=== PATIENT | female | born 1965 | race African-American/Black ===

== ENCOUNTER → 2019-05-31 07:22 | Outpatient (CLI) | payer OTHER, SELFPAY ==
--- NOTE | 2019-05-31 06:57 | BI_ITS ---
MAMMOGRAPHY - BILATERAL SCREENING REASON FOR EXAM: Female, 54 years old. Routine annual screening examination. PERTINENT HISTORY: Non-contributory. Prior ultrasound guided biopsy of a left breast nodule. TECHNIQUE: Digital bilateral breast kerline (3D mammographic acquisition) in the CC and MLO projections. 2-D mediolateral oblique (MLO) and craniocaudad (CC) views of both breasts were obtained. CAD: Full Field Digital Mammography with Computer Added Detection was performed. COMPARISON: Comparison is made with prior study dated November 27, 2017 and October 22, 2016. FINDINGS: Breast Composition: There are scattered areas of fibroglandular density. There are no dominant masses or suspicious calcifications. A tissue clip marker is seen within the 7.3 mm x 5.4 mm nodule in the central lateral aspect of the left breast. Stable appearance of the bilateral axillary lymph nodes. No other significant abnormalities are identified. There has been no significant change since the prior study. BI/SCREEN MAMM (CAD) W/KERLINE BILAT IMPRESSION: Stable bilateral screening mammogram. Yearly follow-up mammogram recommended. (A) ASSESSMENT CATEGORY: BIRADS Category 2: Benign. A letter regarding these results will be sent to the patient by the facility within 30 days. Approximately 10% of breast cancers are not detected by mammography. A normal mammogram should not delay biopsy of a clinically suspicious abnormality. [id number] Electronically Signed: Chavez Garcia, at 9:17 EDT , Service support ,
== END ==
PROVIDERS: Family Provider Family Medicine; PCP Family Medicine; Referring Provider Nurse Practitioner Primary Care; Visit Provider Nurse Practitioner Primary Care
DX: Z12.31 Encounter for screening mammogram for malignant neoplasm of breast (principal)
CPT/HCPCS: 77063; 77067

== ENCOUNTER → 2020-06-04 07:14 | Outpatient (CLI) | payer OTHER, SELFPAY ==
--- NOTE | 2020-06-04 07:17 | BI_ITS ---
MAMMOGRAPHY - BILATERAL SCREENING REASON FOR EXAM: Female, 55 years old. Routine annual screening examination. PERTINENT HISTORY: Non-contributory. Prior left ultrasound-guided breast biopsy. TECHNIQUE: Digital bilateral breast kerline (3D mammographic acquisition) in the CC and MLO projections. 2-D mediolateral oblique (MLO) and craniocaudad (CC) views of both breasts were obtained. CAD: Full Field Digital Mammography with Computer Added Detection was performed. COMPARISON: Comparison is made with prior examination dated May 31, 2019 and November 27, 2017. FINDINGS: Breast Composition: The breasts are almost entirely fatty. There are no dominant masses or suspicious calcifications. A tissue clip marker is once again seen within the 7.3 mm x 5.4 mm nodule in the central lateral aspect of the left breast. Stable benign-appearing bilateral axillary lymph nodes. No other significant abnormalities are identified. There has been no significant change since the prior study. BI/SCREEN MAMM (CAD) W/KERLINE BILAT IMPRESSION: Stable bilateral screening mammogram. Yearly follow-up mammogram recommended. (A) ASSESSMENT CATEGORY: BIRADS Category 2: Benign. A letter regarding these results will be sent to the patient by the facility within 30 days. Approximately 10% of breast cancers are not detected by mammography. A normal mammogram should not delay biopsy of a clinically suspicious abnormality. [id number] Electronically Signed: Chavez Garcia, at 8:43 EDT , Service support ,
== END ==
PROVIDERS: PCP Family Medicine; Referring Provider Nurse Practitioner Family; Visit Provider Nurse Practitioner Family
DX: Z12.31 Encounter for screening mammogram for malignant neoplasm of breast (principal)
CPT/HCPCS: 77063; 77067

== ENCOUNTER → 2021-06-06 07:35 | Outpatient (CLI) | payer OTHER, SELFPAY ==
--- NOTE | 2021-06-06 07:37 | BI_ITS ---
MAMMOGRAPHY - BILATERAL SCREENING REASON FOR EXAM: Female, 56 years old. Routine annual screening examination. PERTINENT HISTORY: Non-contributory. Remote left ultrasound guided breast biopsy. TECHNIQUE: Digital bilateral breast kerline (3D mammographic acquisition) in the CC and MLO projections. 2-D mediolateral oblique (MLO) and craniocaudad (CC) views of both breasts were obtained. CAD: Full Field Digital Mammography with Computer Added Detection was performed. COMPARISON: Comparison is made with prior examination dated 06/04/2020 and 05/31/2019. FINDINGS: Breast Composition: The breasts are almost entirely fatty. There are no dominant masses or suspicious calcifications. A tissue clip marker is once again seen within a 7 mm x 5 mm nodule in the central lateral aspect of the left breast. Stable small benign appearing bilateral axillary lymph nodes. No other significant abnormalities are identified. There has been no significant change since the prior study. BI/SCRN MAMM (CAD)W/KERLINE BILAT IMPRESSION: Stable bilateral screening mammogram. Yearly follow-up mammogram recommended. (A) ASSESSMENT CATEGORY: BIRADS Category 2: Benign. A letter regarding these results will be sent to the patient by the facility within 30 days. Approximately 10% of breast cancers are not detected by mammography. A normal mammogram should not delay biopsy of a clinically suspicious abnormality. [id number] Electronically Signed: Chavez Garcia MD at 8:28 EDT , Service support ,
== END ==
PROVIDERS: PCP Family Medicine; Referring Provider Nurse Practitioner Primary Care; Visit Provider Nurse Practitioner Primary Care
DX: Z12.31 Encounter for screening mammogram for malignant neoplasm of breast (principal)
CPT/HCPCS: 77063; 77067

== ENCOUNTER 2021-12-30 15:29 | Outpatient (RCR) | payer OTHER, SELFPAY | END 2021-12-30 23:59 | LOC: NS 15:29 | PROVIDERS: PCP Family Medicine; Visit Provider Specialist | DX: Z71.3 Dietary counseling and surveillance (principal); Z68.41 Body mass index [BMI] 40.0-44.9, adult; E66.8 Other obesity | CPT/HCPCS: 97802 ==

== ENCOUNTER → 2022-08-05 | Outpatient (CLI) | payer OTHER, SELFPAY ==
--- NOTE | 2022-08-05 07:07 | BI_ITS ---
MAMMOGRAPHY - BILATERAL SCREENING REASON FOR EXAM: Female, 57 years old. Routine annual screening examination. PERTINENT HISTORY: Non-contributory. Prior left ultrasound-guided breast biopsy. TECHNIQUE: Digital bilateral breast kerline (3D mammographic acquisition) in the CC and MLO projections. 2-D mediolateral oblique (MLO) and craniocaudad (CC) views of both breasts were obtained. CAD: Full Field Digital Mammography with Computer Added Detection was performed. COMPARISON: Comparison is made with prior study 06/06/2021 and 06/04/2020. FINDINGS: Breast Composition: The breasts are almost entirely fatty. There are no dominant masses or suspicious calcifications. Stable small benign appearing bilateral axillary lymph nodes. A tissue clip marker is seen in the anterior superior aspect of the left retroareolar region. No other significant abnormalities are identified. There has been no significant change since the prior study. BI/SCRN MAMM (CAD)W/KERLINE BILAT IMPRESSION: Stable bilateral screening mammogram. Yearly follow-up mammogram recommended. (A) ASSESSMENT CATEGORY: BIRADS Category 2: Benign. A letter regarding these results will be sent to the patient by the facility within 30 days. Approximately 10% of breast cancers are not detected by mammography. A normal mammogram should not delay biopsy of a clinically suspicious abnormality. [id number] Electronically Signed: Chavez Garcia MD at 8:27 EDT ,
== END | disposition home or self-care (01) ==
LOC: OPBI 07:04
PROVIDERS: PCP Nurse Practitioner Primary Care; Visit Provider Nurse Practitioner Primary Care
DX: Z12.31 Encounter for screening mammogram for malignant neoplasm of breast (principal)
CPT/HCPCS: 77063; 77067

== ENCOUNTER → 2023-02-11 | Outpatient (CLI) | payer OTHER, SELFPAY ==
--- NOTE | 2023-02-11 09:15 | MRI_ITS ---
EXAM: MR LEFT LOWER EXTREMITY WITHOUT INTRAVENOUS CONTRAST, ANKLE CLINICAL INDICATION: LEFT ankle pain, injury TECHNIQUE: Multiplanar and multisequence MR images of the left ankle without intravenous contrast. This report was created using [employer] report [employer] technology. COMPARISON: None. FINDINGS: LIGAMENTS: ANTERIOR TALOFIBULAR: Unremarkable. Intact. POSTERIOR TALOFIBULAR: Unremarkable. Intact. ANTERIOR TIBIOFIBULAR: Unremarkable. Intact. POSTERIOR TIBIOFIBULAR: Unremarkable. Intact. CALCANEOFIBULAR: Unremarkable. Intact. DELTOID: Unremarkable. Intact. SPRING: Unremarkable. Intact. LISFRANC: Unremarkable. Intact. TENDONS: ACHILLES: Unremarkable. Intact. FLEXOR: Unremarkable. Intact. EXTENSOR: Unremarkable. Intact. PERONEAL: Unremarkable. Intact. TIBIALIS ANTERIOR: Unremarkable. Intact. TIBIALIS POSTERIOR: Unremarkable. Intact. MUSCLES: Unremarkable. Normal bulk and signal. FLUID: Small posterior subtalar joint effusion and small tibiotalar joint effusion, both with synovitis. SINUS TARSI: Unremarkable. Normal fat in the sinus tarsi. TARSAL TUNNEL: Unremarkable. PLANTAR FASCIA: Unremarkable. Intact. CARTILAGE: Unremarkable. No osteochondral lesion. Articular cartilage intact. BONES/JOINTS: Chronic appearing osteochondral lesion or defect measuring 6 mm at the medial medial talar dome. No fracture or marrow edema. OTHER SOFT TISSUES: Unremarkable. MRI/Lower Ext Joint Only (Routine) IMPRESSION: 1. Chronic appearing osteochondral lesion or defect measuring 6 mm at the medial medial talar dome. 2. Small posterior subtalar joint effusion and small tibiotalar joint effusion, both with synovitis. 3. No other significant internal derangement. Electronically Signed: Jerry Terrazas MD at 23:44 EDT ,
== END | disposition home or self-care (01) ==
PROVIDERS: PCP Nurse Practitioner Primary Care; Referring Provider Student in an Organized Health Care Education/Training Program; Visit Provider Student in an Organized Health Care Education/Training Program
DX: S93.432A Sprain of tibiofibular ligament of left ankle, initial encounter (principal); M79.672 Pain in left foot; M25.372 Other instability, left ankle
CPT/HCPCS: 73721

== ENCOUNTER → 2023-08-10 | Outpatient (CLI) | payer OTHER, SELFPAY ==
--- NOTE | 2023-08-10 07:12 | BI_ITS ---
MAMMOGRAPHY - BILATERAL SCREENING REASON FOR EXAM: Female, 58 years old. Routine annual screening examination. PERTINENT HISTORY: Non-contributory. History of prior left ultrasound-guided breast biopsy. TECHNIQUE: Digital bilateral breast kerline (3D mammographic acquisition) in the CC and MLO projections. 2-D mediolateral oblique (MLO) and craniocaudad (CC) views of both breasts were obtained. CAD: Full Field Digital Mammography with Computer Added Detection was performed. COMPARISON: Comparison is made with prior study August 05, 2022 and June 06, 2022. FINDINGS: Breast Composition: The breasts are almost entirely fatty. There are no dominant masses or suspicious calcifications. Stable small benign-appearing bilateral axillary lymph nodes. Stable 3 mm nodular density in the axillary region of the right breast suggestive of a small lymph node. A tissue clip marker is seen in the lateral subareolar region of the left breast. No other significant abnormalities are identified. There has been no significant change since the prior study. BI/SCRN MAMM (CAD)W/KERLINE BILAT IMPRESSION: Stable bilateral screening mammogram. Yearly follow-up mammogram recommended. (A) ASSESSMENT CATEGORY: BIRADS Category 2: Benign. A letter regarding these results will be sent to the patient by the facility within 30 days. Approximately 10% of breast cancers are not detected by mammography. A normal mammogram should not delay biopsy of a clinically suspicious abnormality. [id number] Electronically Signed: Chavez Garcia MD at 8:49 EDT ,
== END | disposition home or self-care (01) ==
LOC: OPBI 07:10
PROVIDERS: PCP Nurse Practitioner Primary Care; Referring Provider Nurse Practitioner Primary Care; Visit Provider Nurse Practitioner Primary Care
DX: Z12.31 Encounter for screening mammogram for malignant neoplasm of breast (principal)
CPT/HCPCS: 77063; 77067

== ENCOUNTER → 2024-02-22 | Outpatient (CLI) | payer OTHER, SELFPAY ==
[2024-02-22 12:39] LABS: Erythrocyte Sedimentation Rate 10 mm/hr (0-30)
[2024-02-22 12:44] LABS: Absolute Neutrophil Count 2.7 X10^3/uL (2.0-7.7); Basophil# 0.03 X10^3/uL; Basophil% 0.6 % (0-1); Eosinophil# 0.11 X10^3/uL; Hematocrit 41.8 % (37-47); Hemoglobin 13.4 g/dL (12.0-15.0); Mean Corp Hgb Conc 32.1 g/dL (32-36); Mean Corpuscular Hgb 31.7 pg (27.0-32.0); Mean Corpuscular Volume 98.8 fL (81-99); Mean Platelet Vol. 11.9 fl (6.2-12.0); Monocyte# 0.46 X10^3/uL; Monocyte% 8.5 % (0-10); NRBC Flagged by Analyzer 0 % (0-5); Neutrophil # 2.68 X10^3/uL (2.7-7.7); Neutrophil % 49.7 % (47-70); Platelet Count 205 K/mm3 (150-450); RBC Distribution Width CV 12.7 % (11.6-14.6); RBC Distribution Width SD 45.1 fl (35.1-43.9); Red Blood Count 4.23 M/mm3 (4.2-5.4); White Blood Count 5.4 K/mm3 (4.4-11.0)
[2024-02-22 13:32] LABS: ALB/GLOB Ratio 0.9 RATIO (0.9-2.4); AST(SGOT) 17 U/L (15-37); Alanine Aminotransfer ALT/SGPT 23 U/L (13-56); Albumin, Serum 3.7 g/dL (3.2-5.0); Alkaline Phosphatase 88 U/L (45-117); Anion Gap 6 (5-15); BUN 15 mg/dL (7-18); BUN/Creat Ratio 20.3 RATIO (10-20); CRP < 2.90 mg/L (0.0-3.0); Chloride 108 mmol/L (98-107); Creatinine, Serum 0.74 mg/dL (0.55-1.02); EST Glomerular Filtration Rate 85 mL/min (>60); Est Glom Filt Rate - Afr Amer 103 mL/min (>60); Glucose 101 mg/dL (74-106); Protein, Total 7.7 g/dL (6.4-8.2); Rheumatoid Factor < 10.0 IU/mL (<15); Sodium Level 141 mmol/L (136-145)
[2024-02-22 13:54] LABS: Hepatitis B Surface Antibody Non-Reactive; Hepatitis B Surface Antigen Non-Reactive (Nonreactive); Hepatitis C Antibody Non-Reactive (Nonreactive)
[2024-02-23 11:09] LABS: ANTINUCLEAR ANTIBODIES DIRECT Negative (Negative)
[2024-02-23 14:10] LABS: CCP IgG Antibodies 1 units (0-19)
== END | disposition home or self-care (01) ==
PROVIDERS: PCP Nurse Practitioner Primary Care; Referring Provider Internal Medicine Rheumatology; Visit Provider Internal Medicine Rheumatology
DX: M06.4 Inflammatory polyarthropathy (principal)
CPT/HCPCS: 36415; 80053; 85025; 85652; 86038; 86140; 86200; 86431; 86706; 86803; 87340

== ENCOUNTER → 2024-05-06 | Outpatient (CLI) | payer OTHER, SELFPAY ==
[2024-05-06 15:19] LABS: Absolute Lymphocyte Count 2.36 X10^3/uL (0.83-4.51); Absolute Neutrophil Count 3.6 X10^3/uL (2.0-7.7); Basophil# 0.02 X10^3/uL; Basophil% 0.3 % (0-1); Eosinophils% 1.5 % (0-5); Hematocrit 38.3 % (37-47); Hemoglobin 12.6 g/dL (12.0-15.0); Lymphocyte # 2.36 X10^3/ul (0.83-4.51); Lymphocyte % 34.5 % (19-41); Mean Corp Hgb Conc 32.9 g/dL (32-36); Mean Corpuscular Hgb 31.9 pg (27.0-32.0); Mean Platelet Vol. 11.8 fl (6.2-12.0); Monocyte# 0.76 X10^3/uL; Monocyte% 11.1 % (0-10); NRBC Flagged by Analyzer 0 % (0-5); Neutrophil # 3.58 X10^3/uL (2.7-7.7); Neutrophil % 52.3 % (47-70); Platelet Count 207 K/mm3 (150-450); RBC Distribution Width CV 12.9 % (11.6-14.6); RBC Distribution Width SD 46.3 fl (35.1-43.9); Red Blood Count 3.95 M/mm3 (4.2-5.4); White Blood Count 6.8 K/mm3 (4.4-11.0)
[2024-05-06 15:46] LABS: ALB/GLOB Ratio 0.9 RATIO (0.9-2.4); AST(SGOT) 16 U/L (15-37); Alanine Aminotransfer ALT/SGPT 26 U/L (13-56); Albumin, Serum 3.5 g/dL (3.2-5.0); Alkaline Phosphatase 76 U/L (45-117); Anion Gap 6 (5-15); BUN 18 mg/dL (7-18); BUN/Creat Ratio 22.6 RATIO (10-20); Calcium,Total 8.7 mg/dL (8.5-10.1); Chloride 108 mmol/L (98-107); EST Glomerular Filtration Rate 78 mL/min (>60); Est Glom Filt Rate - Afr Amer 94 mL/min (>60); Globulin 3.7 g/dL (2.2-4.2); Glucose 102 mg/dL (74-106); Potassium 3.9 mmol/L (3.5-5.1); Protein, Total 7.2 g/dL (6.4-8.2); Sodium Level 139 mmol/L (136-145)
== END | disposition home or self-care (01) ==
LOC: MTLAB 13:56
PROVIDERS: PCP Nurse Practitioner Primary Care; Referring Provider Internal Medicine Rheumatology; Visit Provider Internal Medicine Rheumatology
DX: M06.4 Inflammatory polyarthropathy (principal); Z79.899 Other long term (current) drug therapy
CPT/HCPCS: 36415; 80053; 85025

== ENCOUNTER → 2024-08-12 | Outpatient (CLI) | payer OTHER, SELFPAY ==
--- NOTE | 2024-08-12 07:11 | BI_ITS ---
MAMMOGRAPHY - BILATERAL SCREENING REASON FOR EXAM: Female, 59 years old. Routine annual screening examination. PERTINENT HISTORY: Non-contributory. Prior left ultrasound-guided breast biopsy. TECHNIQUE: Digital bilateral breast kerline (3D mammographic acquisition) in the CC and MLO projections. 2-D mediolateral oblique (MLO) and craniocaudad (CC) views of both breasts were obtained. CAD: Full Field Digital Mammography with Computer Added Detection was performed. COMPARISON: Comparison is made with prior study August 10, 2023 and August 05, 2022. FINDINGS: Breast Composition: The breasts are almost entirely fatty. There are no dominant masses or suspicious calcifications. A tissue clip marker is seen in the retroareolar area of the left breast. Stable 3 mm nodule in the axial region of the right breast suggestive of a small lymph node. No other significant abnormalities are identified. There has been no significant change since the prior study. BI/SCRN MAMM (CAD)W/KERLINE BILAT IMPRESSION: Stable bilateral screening mammogram. Yearly follow-up mammogram recommended. (A) ASSESSMENT CATEGORY: BIRADS Category 2: Benign. A letter regarding these results will be sent to the patient by the facility within 30 days. Approximately 10% of breast cancers are not detected by mammography. A normal mammogram should not delay biopsy of a clinically suspicious abnormality. [id number] Electronically Signed: Chavez Garcia MD at 8:40 EDT ,
== END | disposition home or self-care (01) ==
LOC: OPBI 07:09
PROVIDERS: PCP Nurse Practitioner Primary Care; Referring Provider Nurse Practitioner Primary Care; Visit Provider Nurse Practitioner Primary Care
DX: Z12.31 Encounter for screening mammogram for malignant neoplasm of breast (principal)
CPT/HCPCS: 77063; 77067

== ENCOUNTER → 2025-09-14 | Outpatient (CLI) | payer OTHER, SELFPAY ==
--- NOTE | 2025-09-14 07:05 | BI_ITS ---
EXAM: SCRN MAMM (CAD)W/KERLINE BILAT DATE: 09/14/2025 CLINICAL HISTORY: F, Age 60 y/o , SCREENING No family history. Prior left ultrasound-guided breast biopsy. TECHNIQUE: Procedure Code: [id number] Modality: MG Procedure: SCRN MAMM (CAD)W/KERLINE BILAT COMPARISON: Prior exam(s) dated August 12, 2024.. FINDINGS: TISSUE DENSITY: The breasts are almost entirely fatty. Bilateral Breast Mammographic Findings: No significant masses, calcifications or other abnormalities are identified. A tissue clip marker is once again seen in the retroareolar region of the left breast. Stable 3 mm well-defined nodule in the deep upper lateral aspect of the right breast suggestive of a small lymph node. No suspicious masses, areas of developing architectural distortion, or suspicious calcifications. There has been no significant interval change. BI/SCRN MAMM (CAD)W/KERLINE BILAT IMPRESSION: Stable bilateral screening mammogram. OVERALL FINAL ASSESSMENT BI-RADS 2: BENIGN RECOMMENDATION: Routine annual follow-up in 1 Year Additional Recommendation none A letter with findings and recommendations will be mailed to the patient. Reading Location: [place] [address]
--- OUTSIDE RECORDS SUMMARY | 2025-09-14 07:05 | XMS RPT_ITS | CCD ---
Author Organization [facility] Care Team Providers Care Travelers' Aid Worker Name Role Phone KENDRA GRAMAJO Primary Care Physician Ingris LOAN SERVICE OFFICER, Kendra Referring Unavailable Ingris LOAN SERVICE OFFICER, Kendra Attending Unavailable Ingris LOAN SERVICE OFFICER, Kendra Primary Care Unavailable KENDRA GRAMAJO Attending KENDRA Ashraf Primary Care Unavailanup e Medications Current Medications Medication Drug Class(es) Dates Sig (Normalized) Sig (Original) acetaminophen 500 mg oral tablet (7 sources) Start: 05-23-2021 acetaminophen 500 mg oral tablet Dose : 1,000 mg = 2 tab(s), Oral, TID, PRN pain or fever, 0 Refill(s) Start Date: 05/23/21 Status: Ordered Medication Dispense Status: Completed Total Allowed Fills: 1 Fills Dispensed: 0 ferrous sulfate 325 mg oral tablet (1 source) Start: 08-22-2025 IRON (ferrous sulfate 325 mg) 65 mg oral tablet Dose : 325 mg = 1 tab(s), Oral, BIDM, Take with food. Unsure of mg., 3 Refill(s) Start Date: 08/22/25 Status: Ordered Medication Dispense Status: Completed Total Allowed Fills: 1 Fills Dispensed: 0 Multivitamin preparation (1 source) Start: 08-22-2025 take 1 tablet by mouth once daily Multivitamin Dose = 1 tab(s), Oral, Daily, 0 Refill(s) Start Date: 08/22/25 Status: Ordered Medication Dispense Status: Completed Total Allowed Fills: 1 Fills Dispensed: 0 naproxen sodium 220 mg oral tablet (2 sources) Nonsteroidal Anti-inflammatory Drug Start: 08-04-2023 Aleve 220 mg oral tablet Dose : 440 mg = 2 tab(s), Oral, q8h, 0 Refill(s) Start Date: 08/04/23 Status: Ordered Medication Dispense Status: Completed Total Allowed Fills: 1 Fills Dispensed: 0 Nyquil Cold and Flu Nighttime (3 sources) Start: 12-11-2021 Nyquil Cold and Flu Nighttime Oral, q6hr, 0 Refill(s) Start Date: 12/11/21 Status: Ordered predniSONE 10 mg oral tablet (2 sources) Start: 09-09-2021 End: 09-15-2021 prednisone 10mg tab (TAPER) Taper 12-91-27-30-20-10 x 1 day, Oral, qAM, # 21 tab(s), 0 Refill(s), Pharmacy: [address], 160, cm, 09/09/21 13:36:00 EDT, Height, kg, 09/09/21 13:36:00 EDT, Dosing Weight Start Date: 09/09/21 Stop Date: 09/15/21 Status: Ordered Vitamin B12 500 mcg oral tablet (1 source) Start: 08-22-2025 Vitamin B12 500 mcg oral tablet Dose : 500 mcg = 1 tab(s), Oral, qDay, unsure of mg, 0 Refill(s) Start Date: 08/22/25 Status: Ordered Medication Dispense Status: Completed Total Allowed Fills: 1 Fills Dispensed: 0 Problems Problem Classification Problem Date Documented Da te Episodic/Chronic Deficiency and other anemia (1 source) Macrocytic anemia 08-22-2025 Episodic Other non-traumatic joint disorders (1 source) Pain in right knee; Translations: [Pain of joint of knee] Episodic Other non-traumatic joint disorders (5 sources) Knee pain 10-22-2021 Episodic Other nutritional; endocrine; and metabolic disorders (1 source) Body mass index 40+ - severely obese 08-22-2025 Chronic Other nutritional; endocrine; and metabolic disorders (1 source) Morbid obesity 08-22-2025 Chronic Other screening for suspected conditions (not mental disorders or infectious disease) (1 source) Encounter for screening mammogram for malignant neoplasm of breast; Translations: [Encounter for screening mammogram for malignant neoplasm of breast] Onset: 08-31-2025 Episodic Unclassified (2 sources) Cancer cervix screening status 08-04-2023 Unclassified (6 sources) Patient encounter status 08-04-2023 Results Test Name Value Interpretation Reference Range Facility .Auto Diffon 09-11-2025 Basophil, Absolute 0.0 10 3/mcL Normal 0.0-0.3 [facility] Comment on above: Performed By: #### B 12, FOL #### [place] [address] #### CBC, LIPID, CMP, ANEU, GFR, ADIFF #### [address] [address] Basophils/100 WBC (Bld) 0.3 % Normal 0.0-2.5 [facility] Comment on above: Performed By: #### Reed 12, FOL #### [place] [address] #### CBC, LIPID, CMP, ANEU, GFR, ADIFF #### [address] [address] Eosinophil, Absolute 0.1 10 3/mcL Normal 0.0-0.7 [facility] Comment on above: Performed By: #### B 12, FOL #### [place] [address] #### CBC, LIPID, CMP, ANEU, GFR, ADIFF #### [address] [address] Eosinophils/100 WBC (Bld) 1.8 % Normal 0.0-6.0 [facility] Comment on above: Performed By: #### Reed 12, FOL #### [place] [address] #### CBC, LIPID, CMP, ANEU, GFR, ADIFF #### [address] [address] Lymphocyte, Absolute 2.0 10 3/mcL Normal 0.9-4.3 [facility] Comment on above: Performed By: #### B 12, FOL #### [place] [address] #### CBC, LIPID, CMP, ANEU, GFR, ADIFF #### [address] [address] Lymphocytes/100 WBC (Bld) 39.8 % Normal 20.0-40.0 [facility] Comment on above: Performed By: #### B 12, FOL #### [place] [address] #### CBC, LIPID, CMP, ANEU, GFR, ADIFF #### [address] [address] Monocyte, Absolute 0.5 10 3/mcL Normal 0.1-1.4 [facility] Comment on above: Performed By: #### B 12, FOL #### [place] [address] #### CBC, LIPID, CMP, ANEU, GFR, ADIFF #### [address] [address] Monocytes/100 WBC (Bld) 10.2 % Normal 2.0-13.0 [facility] Comment on above: Performed By: #### B 12, FOL #### [place] [address] #### CBC, LIPID, CMP, ANEU, GFR, ADIFF #### [address] [address] Neutrophils/100 WBC (Bld) 47.9 % Low 50.0-75.0 [facility] Comment on above: Performed By: #### B 12, FOL #### [place] [address] #### CBC, LIPID, CMP, ANEU, GFR, ADIFF #### [address] [address] .GFRon 09-11-2025 Estimated Glomerular Filtration Rate 74 ml/min/1.73sqm Normal [facility] Comment on above: Result Comment: Stages of Chronic Kidney Disease (CKD) Stage Description eGFR(ml/min/1.73 sq.m.) CKD 1 Normal kidney function or >=90 normal kindney function with possible kidney damage (ex. Proteinuria) CKD 2 Kidney damage with mild loss 60-89 of kidney function CKD 3a Mild to moderate loss of kidney 45-59 function CKD 3b Moderate to severe loss of 30-44 of kindey function CKD 4 Severe loss of kidney function 15-29 CKD 5 Kidney failure <15 Note: (go live 2025) the eGFR calculation was updated to the 2020 CKD-EPI creatinine equation without a race factor to calculate the eGFR results. Performed By: #### B 12, FOL #### [place] [address] #### CBC, LIPID, CMP, ANEU, GFR, ADIFF #### [address] [address] .NEUABSon 09-11-2025 Neutrophil, Absolute 2.4 10 3/mcL Normal 2.3-8.1 [facility] Comment on above: Performed By: #### Reed 12, FOL #### [place] [address] #### CBC, LIPID, CMP, ANEU, GFR, ADIFF #### [address] [address] B12on 09-11-2025 Cobalamin (Vitamin B12) [Mass/Vol] 737 pg/mL Normal 211-911 [facility] Comment on above: Performed By: #### Reed 12, FOL #### [place] [address] #### CBC, LIPID, CMP, ANEU, GFR, ADIFF #### [address] [address] CBCon 09-11-2025 Erythrocyte distribution width (RBC) [Ratio] 13.1 % Normal 11.5-15.5 [facility] Comment on above: Performed By: #### B 12, FOL #### [place] [address] #### CBC, LIPID, CMP, ANEU, GFR, ADIFF #### [place] [address] Hematocrit (Bld) [Volume fraction] 40.6 % Normal 34.0-46.0 [facility] Comment on above: Performed By: #### B 12, FOL #### [place] [address] #### CBC, LIPID, CMP, ANEU, GFR, ADIFF #### [address] [address] Hgb 13.7 G/dL Normal 12.0-16.0 [facility] Comment on above: Performed By: #### Reed 12, FOL #### [place] [address] #### CBC, LIPID, CMP, ANEU, GFR, ADIFF #### [address] [address] MCH (RBC) [Entitic mass] 33.3 pg High 27.0-33.0 [facility] Comment on above: Performed By: #### Reed 12, FOL #### [place] [address] #### CBC, LIPID, CMP, ANEU, GFR, ADIFF #### [place] [address] MCHC 33.6 G/dL Normal 32.0-36.0 [facility] Comment on above: Performed By: #### Reed 12, FOL #### [place] [address] #### CBC, LIPID, CMP, ANEU, GFR, ADIFF #### [place] [address] MCV (RBC) [Entitic vol] 99.1 fL High 80.0-99.0 [facility] Comment on above: Performed By: #### Reed 12, FOL #### [place] [address] #### CBC, LIPID, CMP, ANEU, GFR, ADIFF #### [address] [address] Platelet 194 10 3/mcL Normal 150-450 [facility] Comment on above: Performed By: #### B 12, FOL #### [place] [address] #### CBC, LIPID, CMP, ANEU, GFR, ADIFF #### [place] [id number] Platelet mean volume (Bld) [Entitic vol] 10.3 fL Normal 6.6-10.5 [facility] Comment on above: Performed By: #### Reed 12, FOL #### [place] [address] #### CBC, LIPID, CMP, ANEU, GFR, ADIFF #### [address] [address] RBC 4.10 10 6/mcL Normal 4.10-5.30 [facility] Comment on above: Performed By: #### Reed 12, FOL #### [place] [address] #### CBC, LIPID, CMP, ANEU, GFR, ADIFF #### [place] [id number] WBC 5.1 10 3/mcL Normal 4.5-10.8 [facility] Comment on above: Performed By: #### Reed 12, FOL #### [place] [address] #### CBC, LIPID, CMP, ANEU, GFR, ADIFF #### [address] [address] CMPon 09-11-2025 Albumin Level 3.7 G/dL Normal 3.4-4.8 [facility] Comment on above: Performed By: #### Reed 12, FOL #### [place] [address] #### CBC, LIPID, CMP, ANEU, GFR, ADIFF #### [address] [address] Albumin/Globulin [Mass ratio] 0.9 {ratio} Low 1.1-2.5 [facility] Comment on above: Performed By: #### Reed 12, FOL #### [place] [address] #### CBC, LIPID, CMP, ANEU, GFR, ADIFF #### [address] [address] ALP [Catalytic activity/Vol] 100 U/L Normal 40-135 [facility] Comment on above: Performed By: #### Reed 12, FOL #### [place] [address] #### CBC, LIPID, CMP, ANEU, GFR, ADIFF #### [address] [address] ALT [Catalytic activity/Vol] 40 U/L Normal 14-59 [facility] Comment on above: Performed By: #### Reed 12, FOL #### [place] [address] #### CBC, LIPID, CMP, ANEU, GFR, ADIFF #### [address] [address] AST [Catalytic activity/Vol] 27 U/L Normal 10-40 [facility] Comment on above: Performed By: #### Reed 12, FOL #### [place] [address] #### CBC, LIPID, CMP, ANEU, GFR, ADIFF #### [address] [address] Bili Total 0.5 mg/dL Normal 0.2-1.0 [facility] Comment on above: Result Comment: Use of this assay is not recommended for patients undergoing treatment with eltrombopag due to the potential for falsely elevated results. Performed By: #### Reed 12, FOL #### [place] [address] #### CBC, LIPID, CMP, ANEU, GFR, ADIFF #### [address] [address] BUN/Creatinine Ratio 16 ratio Normal 7-27 [facility] Comment on above: Performed By: #### Reed 12, FOL #### [place] [address] #### CBC, LIPID, CMP, ANEU, GFR, ADIFF #### [address] [address] Calcium [Mass/Vol] 8.7 mg/dL Normal 8.4-10.2 [facility] Comment on above: Performed By: #### B 12, FOL #### [place] [address] #### CBC, LIPID, CMP, ANEU, GFR, ADIFF #### [address] [address] Chloride [Moles/Vol] 103 mmol/L Normal 98-107 [facility] Comment on above: Performed By: #### B 12, FOL #### [place] [address] #### CBC, LIPID, CMP, ANEU, GFR, ADIFF #### [place] [address] CO2 [Moles/Vol] 29 mmol/L Normal 23-31 [facility] Comment on above: Performed By: #### B 12, FOL #### [place] [address] #### CBC, LIPID, CMP, ANEU, GFR, ADIFF #### [place] [address] Creatinine [Mass/Vol] 0.88 mg/dL Normal 0.51-0.95 [facility] Comment on above: Performed By: #### B 12, FOL #### [place] [address] #### CBC, LIPID, CMP, ANEU, GFR, ADIFF #### [place] [address] Electrolyte Balance 6.0 mEq/L Normal 4.0-15.0 [facility] Comment on above: Performed By: #### B 12, FOL #### [place] [address] #### CBC, LIPID, CMP, ANEU, GFR, ADIFF #### [place] [address] Globulin 3.9 G/dL Normal 2.7-4.4 [facility] Comment on above: Performed By: #### B 12, FOL #### [place] [address] #### CBC, LIPID, CMP, ANEU, GFR, ADIFF #### [address] [address] Glucose [Mass/Vol] 103 mg/dL Normal 80-115 [facility] Comment on above: Performed By: #### B 12, FOL #### [place] [address] #### CBC, LIPID, CMP, ANEU, GFR, ADIFF #### [address] [address] Potassium [Moles/Vol] 4.2 mmol/L Normal 3.5-5.1 [facility] Comment on above: Performed By: #### Reed 12, FOL #### [place] [address] #### CBC, LIPID, CMP, ANEU, GFR, ADIFF #### [address] [address] Sodium [Moles/Vol] 138 mmol/L Normal 136-145 [facility] Comment on above: Performed By: #### Reed 12, FOL #### [place] [address] #### CBC, LIPID, CMP, ANEU, GFR, ADIFF #### [address] [address] Total Protein 7.6 G/dL Normal 6.4-8.2 [facility] Comment on above: Performed By: #### Reed 12, FOL #### [place] [address] #### CBC, LIPID, CMP, ANEU, GFR, ADIFF #### [address] [address] Urea nitrogen [Mass/Vol] 14 mg/dL Normal 7-18 [facility] Comment on above: Performed By: #### B 12, FOL #### [place] [address] #### CBC, LIPID, CMP, ANEU, GFR, ADIFF #### [address] [address] FOLon 09-11-2025 Folate 13.68 ng/mL Normal 5.38-24.00 [facility] Comment on above: Performed By: #### B 12, PETER #### [address] [address] #### CBC, LIPID, CMP, ANEU, GFR, ADIFF #### [place] [address] [place], [place] [address] LABORATORYOrdered By: SYSTEM SYSTEM on 09-11-2025 Albumin BCP dye [Mass/Vol] 3.7 G/dL Normal 3.4 - 4.8 G/dL AO ADM SS Albumin/Globulin [Mass ratio] 0.9 {ratio} Low 1.1 - 2.5 ratio AO ADM SS ALP [Catalytic activity/Vol] 100 U/L Normal 40 - 135 U/L AO ADM SS ALT With P-5'-P [Catalytic activity/Vol] 40 U/L Normal 14 - 59 U/L AO ADM SS AST With P-5'-P [Catalytic activity/Vol] 27 U/L Normal 10 - 40 U/L AO ADM SS Basophils (Bld) [#/Vol] 0.0 103/mcL Normal 0.0 - 0.3 10^3/mcL AO Workflow SS Basophils/100 WBC (Bld) 0.3 % Normal 0.0 - 2.5 % AO Workflow SS Bilirubin [Mass/Vol] 0.5 mg/dL Normal 0.2 - 1 .0 mg/dL AO ADM SS Comment on above: Interpretive Data: U se of this assay is not recommended for patients undergoing treatment with eltrombopag due to the potential for falsely elevated results. Calcium [Mass/Vol] 8.7 mg/dL Normal 8.4 - 10. 2 mg/dL AO ADM SS Chloride [Moles/Vol] 103 mmol/L Normal 98 - 10 7 mmol/L AO ADM SS CO2 [Moles/Vol] 29 mmol/L Normal 23 - 31 mmol/L AO ADM SS Cobalamin (Vitamin B12) [Mass/Vol] 737 pg/mL Normal 211 - 911 pg/mL AH ADM SS Creatinine [Mass/Vol] 0.88 mg/dL Normal 0.51 - 0.95 mg/dL AO ADM SS Electrolyte Balance 6.0 mEq/L Normal 4.0 - 15 .0 mEq/L AO ADM SS Eosinophil, Absolute 0.1 103/mcL Normal 0.0 - 0 .7 10^3/mcL AO Workflow SS Eosinophils/100 WBC (Bld) 1.8 % Normal 0.0 - 6.0 % AO Workflow SS Erythrocyte distribution width (RBC) [Ratio] 13.1 % Normal 11.5 - 15.5 % AO Workflow SS Folate [Mass/Vol] 13.68 ng/mL Normal 5.38 - 24. 00 ng/mL AH ADM SS Globulin 3.9 G/dL Normal 2.7 - 4.4 G/dL AO ADM SS GLOMERULAR FILTRATION RATE/1.73 SQ M.PREDICTED:ARVRAT:P T:SER/PLAS/BLD:QN:CR EATININE-BASED FORMULA (CKD-EPI 2020) 74 ml/min/1.73sqm Invalid Interpretation Code AO Chemistry S Comment on above: Interpretive Data: Stages of Chronic Kidney Disease (CKD) Stage Description eGFR(ml/min/1.73 sq.m.) CKD 1 Normal kidney function or >=90 normal kindney function with possible kidney damage (ex. Proteinuria) CKD 2 Kidney damage with mild loss 60-89 of kidney function CKD 3a Mild to moderate loss of kidney 45-59 function CKD 3b Moderate to severe loss of 30-44 of kindey function CKD 4 Severe loss of kidney function 15-29 CKD 5 Kidney failure <15 Note: (go live 2025) the eGFR calculation was updated to the 2020 CKD-EPI creatinine equation without a race factor to calculate the eGFR results. Glucose [Mass/Vol] 103 mg/dL Normal 80 - 115 mg/dL AO ADM SS Hematocrit (Bld) [Volume fraction] 40.6 % Normal 34.0 - 46.0 % AO Workflow SS Hemoglobin (Bld) [Mass/Vol] 13.7 G/dL Normal 12.0 - 16.0 G/dL AO Workflow SS Lymphocytes (Bld) [#/Vol] 2.0 103/mcL Normal 0.9 - 4.3 10^3/mcL AO Workflow SS Lymphocytes/100 WBC (Bld) 39.8 % Normal 20.0 - 40.0 % AO Workflow SS MCH (RBC) [Entitic mass] 33.3 pg High 27.0 - 33.0 pg AO Workflow SS MCHC 33.6 G/dL Normal 32.0 - 36.0 G/dL AO Workflow SS MCV (RBC) [Entitic vol] 99.1 fL High 80.0 - 99.0 fL AO Workflow SS Monocytes (Bld) [#/Vol] 0.5 103/mcL Normal 0.1 - 1.4 10^3/mcL AO Workflow SS Monocytes/100 WBC (Bld) 10.2 % Normal 2.0 - 13.0 % AO Workflow SS Neutrophils (Bld) [#/Vol] 2.4 103/mcL Normal 2.3 - 8.1 10^3/mcL AO Workflow SS Neutrophils/100 WBC (Bld) 47.9 % Low 50.0 - 75.0 % AO Workflow SS Platelet mean volume (Bld) [Entitic vol] 10.3 fL Normal 6.6 - 10.5 fL AO Workflow SS Platelets (Bld) [#/Vol] 194 103/mcL Normal 150 - 450 10^3/mcL AO Workflow SS Potassium [Moles/Vol] 4.2 mmol/L Normal 3.5 - 5.1 mmol/L AO ADM SS Protein [Mass/Vol] 7.6 G/dL Normal 6.4 - 8.2 G/dL AO ADM SS RBC (Bld) [#/Vol] 4.10 106/mcL Normal 4.10 - 5.3 0 10^6/mcL AO Workflow SS Sodium [Moles/Vol] 138 mmol/L Normal 136 - 145 mmol/L AO ADM SS Urea nitrogen [Mass/Vol] 14 mg/dL Normal 7 - 18 mg/dL AO ADM SS Urea nitrogen/Creatinine [Mass ratio] 16 ratio Normal 7 - 27 ratio AO ADM SS WBC (Bld) [#/Vol] 5.1 103/mcL Normal 4.5 - 10.8 10^3/mcL AO Workflow SS LABORATORYOrdered By: Rajani Espinosa on 09-11-2025 Cholesterol [Mass/Vol] 227 mg/dL High 0 - 200 mg/dL AO ADM SS Comment on above: Interpretive Data: C holesterol Reference Interval: Less than 200 Desirable 200-239 Borderline high risk 240 and above High risk Cholesterol in HDL [Mass/Vol] 65 mg/dL High 40 - 60 mg/dL AO ADM SS Cholesterol in LDL [Mass/Vol] 147 mg/dL High 0 - 130 mg/dL AO ADM SS Triglyceride [Mass/Vol] 76 mg/dL Normal 0 - 150 mg/dL AO ADM SS Comment on above: Interpretive Data: T riglyceride Reference Interval: Less than 150 Normal 150-199 Borderline high risk 200-499 High risk 500 or higher Very high risk LIPIDon 09-11-2025 Cholesterol [Mass/Vol] 227 mg/dL High 0-200 [facility] Comment on above: Result Comment: Chol esterol Reference Interval: Less than 200 Desirable 200-239 Borderline high risk 240 and above High risk Performed By: #### B 12, FOL #### [place] [address] #### CBC, LIPID, CMP, ANEU, GFR, ADIFF #### [address] [address] Cholesterol in HDL [Mass/Vol] 65 mg/dL High 40-60 [facility] Comment on above: Performed By: #### B 12, FOL #### [place] [address] #### CBC, LIPID, CMP, ANEU, GFR, ADIFF #### [address] [address] Cholesterol in LDL [Mass/Vol] 147 mg/dL High 0-130 [facility] Comment on above: Performed By: #### B 12, FOL #### [place] [address] #### CBC, LIPID, CMP, ANEU, GFR, ADIFF #### [address] [address] Triglyceride [Mass/Vol] 76 mg/dL Normal 0-150 [facility] Comment on above: Result Comment: Trig lyceride Reference Interval: Less than 150 Normal 150-199 Borderline high risk 200-499 High risk 500 or higher Very high risk Performed By: #### B 12, FOL #### [place] [address] #### CBC, LIPID, CMP, ANEU, GFR, ADIFF #### [address] [address] LABORATORYOrdered By: SYSTEM SYSTEM on 10-04-2024 Albumin BCP dye [Mass/Vol] 3.7 G/dL Normal 3.4 - 4.8 G/dL AO ADM SS Albumin/Globulin [Mass ratio] 1.2 {ratio} Normal 1.1 - 2.5 ratio AO ADM SS ALP [Catalytic activity/Vol] 78 U/L Normal 40 - 135 U/L AO ADM SS ALT With P-5'-P [Catalytic activity/Vol] 22 U/L Normal 14 - 59 U/L AO ADM SS AST With P-5'-P [Catalytic activity/Vol] 15 U/L Normal 10 - 40 U/L AO ADM SS Basophils (Bld) [#/Vol] 0.0 103/mcL Normal 0.0 - 0.2 10^3/mcL AO Workflow SS Basophils/100 WBC (Bld) 0.4 % Normal 0.0 - 2.5 % AO Workflow SS Bilirubin [Mass/Vol] 0.6 mg/dL Normal 0.2 - 1 .0 mg/dL AO ADM SS Comment on above: Interpretive Data: U se of this assay is not recommended for patients undergoing treatment with eltrombopag due to the potential for falsely elevated results. Calcium [Mass/Vol] 9.0 mg/dL Normal 8.4 - 10. 2 mg/dL AO ADM SS Chloride [Moles/Vol] 104 mmol/L Normal 98 - 10 7 mmol/L AO ADM SS CO2 [Moles/Vol] 27 mmol/L Normal 23 - 31 mmol/L AO ADM SS Creatinine [Mass/Vol] 0.85 mg/dL Normal 0.55 - 1.02 mg/dL AO ADM SS Comment on above: Interpretive Data: T esting performed on Siemens Dimension EXL analyzer using a modified kinetic Brenda technique. Electrolyte Balance 8.0 mEq/L Normal 4.0 - 15 .0 mEq/L AO ADM SS Eosinophil, Absolute 0.1 103/mcL Normal 0.0 - 0 .7 10^3/mcL AO Workflow SS Eosinophils/100 WBC (Bld) 2.4 % Normal 0.0 - 7.0 % AO Workflow SS Erythrocyte distribution width (RBC) [Ratio] 13.1 % Normal 11.5 - 15.5 % AO Workflow SS GFR/1.73 sq M.predicted among blacks MDRD (S/P/Bld) [Vol rate/Area] 82 ml/min/1.73sqm Invalid Interpretation Code AO Chemistry S Comment on above: Interpretive Data: GFR Population mean for , Non- Americans Ages 20-29 = 116 mL/min/1.73 sq.m. Ages 30-39 = 107 mL/min/1.73 sq.m. Ages 40-49 = 99 mL/min/1.73 sq.m. Ages 50-59 = 93 mL/min/1.73 sq.m. Ages 60-69 = 85 mL/min/1.73 sq.m. Ages 70+ = 75 mL/min/1.73 sq.m. Chronic Kidney Disease: Less than 60 mL/min/1.73 square meters End Stage Renal Disease: Less than 15 mL/min/1.73 square meters GFR/1.73 sq M.predicted among non-blacks MDRD (S/P/Bld) [Vol rate/Area] 68 ml/min/1.73sqm Invalid Interpretation Code AO Chemistry S Comment on above: Interpretive Data: GFR Population mean for , Non- Americans Ages 20-29 = 116 mL/min/1.73 sq.m. Ages 30-39 = 107 mL/min/1.73 sq.m. Ages 40-49 = 99 mL/min/1.73 sq.m. Ages 50-59 = 93 mL/min/1.73 sq.m. Ages 60-69 = 85 mL/min/1.73 sq.m. Ages 70+ = 75 mL/min/1.73 sq.m. Chronic Kidney Disease: Less than 60 mL/min/1.73 square meters End Stage Renal Disease: Less than 15 mL/min/1.73 square meters Globulin 3.0 G/dL Invalid Interpretation Code AO ADM SS Glucose [Mass/Vol] 98 mg/dL Normal 80 - 115 mg/dL AO ADM SS Hematocrit (Bld) [Volume fraction] 37.8 % Normal 34.0 - 46.0 % AO Workflow SS Hemoglobin (Bld) [Mass/Vol] 12.7 G/dL Normal 12.0 - 16.0 G/dL AO Workflow SS Lymphocytes (Bld) [#/Vol] 2.2 103/mcL Normal 0.9 - 4.3 10^3/mcL AO Workflow SS Lymphocytes/100 WBC (Bld) 35.2 % Normal 20.0 - 40.0 % AO Workflow SS MCH (RBC) [Entitic mass] 33.8 pg High 27.0 - 33.0 pg AO Workflow SS MCHC 33.6 G/dL Normal 32.0 - 36.0 G/dL AO Workflow SS MCV (RBC) [Entitic vol] 100.6 fL High 80.0 - 99.0 fL AO Workflow SS Monocytes (Bld) [#/Vol] 0.7 103/mcL Normal 0.1 - 1.4 10^3/mcL AO Workflow SS Monocytes/100 WBC (Bld) 10.7 % Normal 2.0 - 13.0 % AO Workflow SS Neutrophils (Bld) [#/Vol] 3.2 103/mcL Normal 2.3 - 8.1 10^3/mcL AO Workflow SS Neutrophils/100 WBC (Bld) 51.3 % Normal 50.0 - 75.0 % AO Workflow SS Platelet mean volume (Bld) [Entitic vol] 10.7 fL High 6.6 - 10.5 fL AO Workflow SS Platelets (Bld) [#/Vol] 173 103/mcL Normal 150 - 450 10^3/mcL AO Workflow SS Potassium [Moles/Vol] 4.3 mmol/L Normal 3.5 - 5.1 mmol/L AO ADM SS Protein [Mass/Vol] 6.7 G/dL Normal 6.4 - 8.2 G/dL AO ADM SS RBC (Bld) [#/Vol] 3.76 106/mcL Low 4.10 - 5.3 0 10^6/mcL AO Workflow SS Sodium [Moles/Vol] 139 mmol/L Normal 136 - 145 mmol/L AO ADM SS Urea nitrogen [Mass/Vol] 21 mg/dL High 7 - 18 mg/dL AO ADM SS Urea nitrogen/Creatinine [Mass ratio] 25 ratio Normal 7 - 27 ratio AO ADM SS WBC (Bld) [#/Vol] 6.2 103/mcL Normal 4.5 - 10.8 10^3/mcL AO Workflow SS LABORATORYOrdered By: Adrianna Bruce on 09-02-2024 Cholesterol [Mass/Vol] 208 mg/dL High 0 - 200 mg/dL AO ADM SS Comment on above: Interpretive Data: C holesterol Reference Interval: Less than 200 Desirable 200-239 Borderline high risk 240 and above High risk Cholesterol in HDL [Mass/Vol] 67 mg/dL High 40 - 60 mg/dL AO ADM SS Cholesterol in LDL [Mass/Vol] 123 mg/dL Normal 0 - 130 mg/dL AO ADM SS Triglyceride [Mass/Vol] 92 mg/dL Normal 0 - 150 mg/dL AO ADM SS Comment on above: Interpretive Data: T riglyceride Reference Interval: Less than 150 Normal 150-199 Borderline high risk 200-499 High risk 500 or higher Very high risk LABORATORYOrdered By: Maggie Redmond on 09-02-2024 Platelets LM Ql (Bld) Normal (09/02/24 8:32 AM) Normal AO Hematology S Absolute lymphocyte countOrd ered By: Landy Maritnez on 02-22-2024 Lymphocytes Auto (Unsp spec) [#/Vol] 2.10 10*3/uL 0.83-4.51 [facility] Automated lymphocyte count a s percentage of total leukocytesOrdered By: Landy Martinez on 02-22-2024 Lymphocytes/100 WBC Auto (Unsp spec) 39.0 % 19-41 [facility] Basophil percentageOrdered B y: Landy Martinez on 02-22-2024 Basophil percentage < 10.0 IU/mL <15 [facility] Basophils/100 WBC (Bld) 0.6 % 0-1 [facility] Bilirubin [Mass/Vol] 0.40 mg/dL 0.20-1.00 [facility] Comment on above: For patients on eltr ombopag therapy, use of Dimension Mcgrath TBIL is not recommended. Chloride [Moles/Vol] 108 mmol/L 98-107 [facility] Eosinophils/100 WBC (Bld) 2.0 % 0-5 [facility] Glucose [Mass/Vol] 101 mg/dL 74-106 [facility] Comment on above: Fasting Glucose resu lt from 100 to 125 mg/dL suggests IMPAIRED HOMEOSTASIS per A.D.A. criteria. Hemoglobin (Bld) [Mass/Vol] 13.4 g/dL 12.0-15.0 [facility] Monocytes/100 WBC (Bld) 8.5 % 0-10 [facility] Neutrophils (Bld) [#/Vol] 2.7 10*3/uL 2.0-7.7 [facility] Neutrophils/100 WBC (Bld) 49.7 % 47-70 [facility] Potassium [Moles/Vol] 4.0 mmol/L 3.5-5.1 [facility] Protein [Mass/Vol] 7.7 g/dL 6.4-8.2 [facility] Sodium [Moles/Vol] 141 mmol/L 136-145 [facility] WBC (Bld) [#/Vol] 5.4 10*3/uL 4.4-11.0 [facility] Determination of erythrocyte mean corpuscular volume (MCV)Ordered By: Landy Martinez on 02-22-2024 MCV (RBC) [Entitic vol] 98.8 fL 81-99 [facility] Erythrocyte distribution wid th ratioOrdered By: Landy Martinez on 02-22-2024 Erythrocyte distribution width (RBC) [Ratio] 12.7 % 11.6-14.6 [facility] Erythrocyte distribution wid th standard deviationOrdered By: Landy Martinez on 02-22-2024 Erythrocyte distribution width (RBC) [Entitic vol] 45.1 fL 35.1-43.9 [facility] Erythrocyte sedimentation ra teOrdered By: Landy Martinez on 02-22-2024 ESR (Bld) [Velocity] 10 mm/h 0-30 [facility] Hematocrit Auto (Bld) [Volum e fraction]Ordered By: [facility] Juan on 02-22-2024 Hematocrit (Bld) [Volume fraction] 41.8 % 37-47 [facility] Immature granulocytes/100 WB C Auto (Bld)Ordered By: Landy Martinez on 02-22-2024 Immature granulocytes/100 WBC (Bld) 0.200 % 0.0-0.9 [facility] Comment on above: IG% - Immature Granu locytes (promyelocytes, myelocytes and metamyelocytes) > 1% indicates that a LEFT SHIFT is Present. Laboratory - Chemistry and C hemistry - challengeOrdered By: Landy Martinez on 02-22-2024 Albumin/Globulin [Mass ratio] 0.9 {ratio} 0.9-2.4 [facility] ALP [Catalytic activity/Vol] 88 U/L 45-117 [facility] ALT [Catalytic activity/Vol] 23 U/L 13-56 [facility] CO2 [Moles/Vol] 27.0 mmol/L 21.0-32.0 [facility] Globulin (S) [Mass/Vol] 4.0 g/dL 2.2-4.2 [facility] Urea nitrogen/Creatinine [Mass ratio] 20.3 mg/mg 10-20 [facility] Laboratory - Hematology and Cell countsOrdered By: Landy Martienz on 02-22-2024 MCH (RBC) [Entitic mass] 31.7 pg 27.0-32.0 [facility] MCHC (RBC) [Mass/Vol] 32.1 g/dL 32-36 [facility] Nucleated RBC/100 WBC (Bld) [Ratio] 0 % 0-5 [facility] Platelet mean volume (Bld) [Entitic vol] 11.9 fL 6.2-12.0 [facility] Platelets (Bld) [#/Vol] 205 10*3/uL 150-450 [facility] No Panel InformationOrdered By: Landy Martinez on 02-22-2024 Anti-Nuclear Antibody Screen Negative Negative [facility] Comment on above: Performed at: [facility] [address] [id number] Director: Song Pride PhD, Phone: [phone] C-Reactive Protein Extended Range < 2.90 mg/L 0.0-3.0 [facility] Comment on above: C-Reactive Protein ( CRP) provides useful information for thediagnosis, therapy and monitoring of inflammatory processesand associated diseases. For the evaluation of Relative Riskfor Cardiovascular Disease, a High Sensitivity CRP (HSCRP)should be ordered. Estimated GFR (MDRD) Amer 103 mL/min >60 [facility] Comment on above: GFR Calc Estimated GFR (MDRD) Non-Af Amer 85 mL/min >60 [facility] Comment on above: Non- GFR Calc Hepatitis B Surface Antigen Non-Reactive Nonreactive [facility] Hepatitis C Antibody Non-Reactive Nonreactive [facility] Comment on above: Non Reactive: < 0.8 Equivocal: >/= 0.8 to < 1.0 Reactive: >/= 1.0The CDC requires that a reactive/equivocal HCV antibody result be sent out for confirmation. HCV Quant by PCR testing. RBC Auto (Bld) [#/Vol]Ordere d By: Landy Martinez on 02-22-2024 RBC (Bld) [#/Vol] 4.23 10*6/uL 4.2-5.4 [facility] Serum cyclic citrullinated p eptide IgG antibody assay (units/volume)Ordered By: Landy Martinez on 02-22-2024 Cyclic citrullinated peptide IgG Qn 1 units 0-19 [facility] Comment on above: Negative <20 Weak po sitive 20 - 39 Moderate positive 40 - 59 Strong positive >59Performed at: [facility] [id number] Director: Song Pride PhD, Phone: [phone] Serum hepatitis B virus surf martha antibody IgG detectionOrdered By: Landy Martinez on 02-22-2024 HBV surface IgG Ql (S) Non-Reactive [facility] Comment on above: Non Reactive: Incons istent with immunity less than <10 mIU/mL Reactive: Consistent with immunity greater than or equal to 10 mIU/mL Serum or plasma calcium hamilton urement (mass/volume)Ordered By: Landy Martinez on 02-22-2024 Calcium [Mass/Vol] 9.0 mg/dL 8.5-10.1 [facility] Serum or plasma creatinine m easurement (mass/volume)Ordered By: Landy Martinez on 02-22-2024 Creatinine [Mass/Vol] 0.74 mg/dL 0.55-1.02 [facility] Comment on above: The validity of the calculated GFR & GFRAA in patients over 70 years has not been determined. Clinical correlation is essential. Serum or plasma urea nitroge n measurement (mass/volume)Ordered By: Landy Martinez on 02-22-2024 Urea nitrogen [Mass/Vol] 15 mg/dL 7-18 [facility] Thin prep Papanicolaou smear with manual screeningOrdered By: Landy Martinez on 02-22-2024 Thin prep Papanicolaou smear with manual screening 3.7 g/dL 3.2-5.0 [facility] Thin prep Papanicolaou smear with manual screening 17 U/L 15-37 [facility] Thin prep Papanicolaou smear with manual screening 6 5-15 [facility] B12on 06-12-2022 Cobalamin (Vitamin B12) [Mass/Vol] 337 pg/mL Normal 211-911 [facility] ([place] Comment on above: Performed By: #### C MP, GFR #### [address] [place], [place] [address] #### FOL, B12 #### [facility] [address] [place] [address] FOLon 06-12-2022 Folate 16.05 ng/mL Normal 5.38-24.00 [facility] ([place]) Comment on above: Performed By: #### C MP, GFR #### [address] [address] #### FOL, B12 #### [address] [address] .GFRon 06-11-2022 GFR Non- 67 ml/min/1.73sqm Normal [facility] ([place] Comment on above: Result Comment: GFR Population mean for , Non- Americans Ages 20-29 = 116 mL/min/1.73 sq.m. Ages 30-39 = 107 mL/min/1.73 sq.m. Ages 40-49 = 99 mL/min/1.73 sq.m. Ages 50-59 = 93 mL/min/1.73 sq.m. Ages 60-69 = 85 mL/min/1.73 sq.m. Ages 70+ = 75 mL/min/1.73 sq.m. Chronic Kidney Disease: Less than 60 mL/min/1.73 square meters End Stage Renal Disease: Less than 15 mL/min/1.73 square meters Performed By: #### C MP, GFR #### [address] [address] #### FOL, B12 #### [address] [address] GFR 81 ml/min/1.73sqm Normal [facility] ([place] Comment on above: Result Comment: GFR Population mean for , Non- Americans Ages 20-29 = 116 mL/min/1.73 sq.m. Ages 30-39 = 107 mL/min/1.73 sq.m. Ages 40-49 = 99 mL/min/1.73 sq.m. Ages 50-59 = 93 mL/min/1.73 sq.m. Ages 60-69 = 85 mL/min/1.73 sq.m. Ages 70+ = 75 mL/min/1.73 sq.m. Chronic Kidney Disease: Less than 60 mL/min/1.73 square meters End Stage Renal Disease: Less than 15 mL/min/1.73 square meters Performed By: #### C MP, GFR #### [place] [address] #### FOL, B12 #### [address] [address] CMPon 06-11-2022 Albumin Level 4.3 G/dL Normal 3.5-5.0 [facility] [place] Comment on above: Performed By: #### C MP, GFR #### [place] [address] #### FOL, B12 #### [address] [address] Albumin/Globulin [Mass ratio] 1.3 {ratio} Normal 1.1-2.5 [facility] [place] Comment on above: Performed By: #### C MP, GFR #### [place] [address] #### FOL, B12 #### [address] [address] ALP [Catalytic activity/Vol] 90 U/L Normal 40-135 [facility] [place] Comment on above: Performed By: #### C MP, GFR #### [place] [address] #### FOL, B12 #### [address] [address] ALT [Catalytic activity/Vol] 28 U/L Normal 14-59 [facility] [place] Comment on above: Performed By: #### C MP, GFR #### [place] [id number] #### FOL, B12 #### [address] [address] AST [Catalytic activity/Vol] 14 U/L Normal 10-40 [facility] [place] Comment on above: Performed By: #### C MP, GFR #### [address] [address] #### FOL, B12 #### [address] [address] Bili Total 0.4 mg/dL Normal 0.2-1.0 [facility] ([place] Comment on above: Result Comment: Use of this assay is not recommended for patients undergoing treatment with eltrombopag due to the potential for falsely elevated results. Performed By: #### C MP, GFR #### [place] [address] #### FOL, B12 #### [address] [address] BUN/Creatinine Ratio 21 ratio Normal 7-27 [facility] ([place]) Comment on above: Performed By: #### C MP, GFR #### [place] [address] #### FOL, B12 #### [address] [address] Calcium [Mass/Vol] 9.1 mg/dL Normal 8.4-10.2 [facility] ([place] Comment on above: Performed By: #### C MP, GFR #### [place] [address] #### FOL, B12 #### [address] [address] Chloride [Moles/Vol] 107 mmol/L Normal 98-107 [facility] ([place] Comment on above: Performed By: #### C MP, GFR #### [place] [id number] #### FOL, B12 #### [address] [address] CO2 [Moles/Vol] 24 mmol/L Normal 22-29 [facility] ([place] Comment on above: Performed By: #### C MP, GFR #### [place] [id number] #### FOL, B12 #### [place] [address] Creatinine [Mass/Vol] 0.87 mg/dL Normal 0.55-1.02 [facility] ([place] Comment on above: Performed By: #### C MP, GFR #### [address] [id number] #### FOL, B12 #### [place] [address] Electrolyte Balance 10.0 mEq/L Normal 4.0-15.0 [facility] ([place]) Comment on above: Performed By: #### C MP, GFR #### [place] [id number] #### FOL, B12 #### [place] [address] Globulin 3.4 G/dL Normal [facility] ([place] Comment on above: Performed By: #### C MP, GFR #### [place] [id number] #### FOL, B12 #### [place] [address] Glucose [Mass/Vol] 101 mg/dL Normal 70-105 [facility] ([place] Comment on above: Performed By: #### C MP, GFR #### [place] [id number] #### FOL, B12 #### [address] [address] Potassium [Moles/Vol] 4.2 mmol/L Normal 3.5-5.1 [facility] ([place] Comment on above: Performed By: #### C MP, GFR #### [place] [id number] #### FOL, B12 #### [place] [address] Sodium [Moles/Vol] 141 mmol/L Normal 136-145 [facility] ([place] Comment on above: Performed By: #### C MP, GFR #### [address] [address] #### FOL, B12 #### [facility] [address] [place] [address] Total Protein 7.7 G/dL Normal 6.4-8.2 [facility] ([place] Comment on above: Performed By: #### C MP, GFR #### [address] [address] #### FOL, B12 #### [facility] [address] [place] [address] Urea nitrogen [Mass/Vol] 18 mg/dL Normal 7-18 [facility] ([place] Comment on above: Performed By: #### C MP, GFR #### [address] [address] #### FOL, B12 #### [address] [address] LABORATORYOrdered By: Fariba Florian on 06-11-2022 Albumin BCP dye [Mass/Vol] 4.3 G/dL Invalid Interpretation Code 3.5 - 5.0 G/dL AO ADM SS Albumin/Globulin [Mass ratio] 1.3 {ratio} Invalid Interpretation Code 1.1 - 2.5 ratio AO ADM SS ALP [Catalytic activity/Vol] 90 U/L Invalid Interpretation Code 40 - 135 U/L AO ADM SS ALT With P-5'-P [Catalytic activity/Vol] 28 U/L Invalid Interpretation Code 14 - 59 U/L AO ADM SS AST With P-5'-P [Catalytic activity/Vol] 14 U/L Invalid Interpretation Code 10 - 40 U/L AO ADM SS Bilirubin [Mass/Vol] 0.4 mg/dL Invalid Interpretation Code 0.2 - 1.0 mg/dL AO ADM SS Calcium [Mass/Vol] 9.1 mg/dL Invalid Interpretation Code 8.4 - 10.2 mg/dL AO ADM SS Chloride [Moles/Vol] 107 mmol/L Invalid Interpretation Code 98 - 107 mmol/L AO ADM SS CO2 [Moles/Vol] 24 mmol/L Invalid Interpretation Code 22 - 29 mmol/L AO ADM SS Creatinine [Mass/Vol] 0.87 mg/dL Invalid Interpretation Code 0.55 - 1.02 mg/dL AO ADM SS Electrolyte Balance 10.0 mEq/L Invalid Interpretation Code 4.0 - 15.0 mEq/L AO ADM SS Globulin 3.4 G/dL Invalid Interpretation Code AO ADM SS Glucose [Mass/Vol] 101 mg/dL Invalid Interpretation Code 70 - 105 mg/dL AO ADM SS Potassium [Moles/Vol] 4.2 mmol/L Invalid Interpretation Code 3.5 - 5.1 mmol/L AO ADM SS Protein [Mass/Vol] 7.7 G/dL Invalid Interpretation Code 6.4 - 8.2 G/dL AO ADM SS Sodium [Moles/Vol] 141 mmol/L Invalid Interpretation Code 136 - 145 mmol/L AO ADM SS Urea nitrogen [Mass/Vol] 18 mg/dL Invalid Interpretation Code 7 - 18 mg/dL AO ADM SS Urea nitrogen/Creatinine [Mass ratio] 21 ratio Invalid Interpretation Code 7 - 27 ratio AO ADM SS LABORATORYOrdered By: SYSTEM SYSTEM on 06-11-2022 GFR 81 ml/min/1.73sqm Invalid Interpretation Code AO Chemistry S GFR Non- 67 ml/min/1.73sqm Invalid Interpretation Code AO Chemistry S HCVon 06-07-2022 Hep C Ab Non-Reactive Normal Non-Reactive [facility] [place] Comment on above: Performed By: #### C MP, GFR #### [address] [address] #### FOL, B12 #### [place] [address] Hep C Ab Int Normal [facility] ([place] Comment on above: Result Comment: Nonr eactive: Samples with a value < 0.80 are considered nonreactive (negative) for antibodies to HCV. A negative test result does not exclude the possibility of exposure to or infection with HCV. HCV antibodies may be undetectable in some stages of the infection and in some clinical conditions. See Interp Performed By: #### C MP, GFR #### [address] [address] #### FOL, B12 #### [address] [address] .Auto Diffon 06-06-2022 Basophil, Absolute 0.0 10 3/mcL Normal 0.0-0.2 [facility] ([place] Comment on above: Performed By: #### B UN, LIPID #### [address] [address] #### HCV1 #### [address] [address] Basophils/100 WBC (Bld) 0.5 % Normal 0.0-2.5 [facility] ([place]) Comment on above: Performed By: #### B UN, LIPID #### [address] [address] #### HCV1 #### [address] [address] Eosinophil, Absolute 0.1 10 3/mcL Normal 0.0-0.4 [facility] ([place]) Comment on above: Performed By: #### B UN, LIPID #### [place] [address] #### HCV1 #### [address] [address] Eosinophils/100 WBC (Bld) 1.4 % Normal 0.0-7.0 [facility] ([place]) Comment on above: Performed By: #### B UN, LIPID #### [place] [address] #### HCV1 #### [address] [address] Lymphocyte, Absolute 2.4 10 3/mcL Normal 0.8-3.9 [facility] ([place]) Comment on above: Performed By: #### B UN, LIPID #### [place] [address] #### HCV1 #### [address] [address] Lymphocytes/100 WBC (Bld) 39.7 % Normal 10.0-50.0 [facility] ([place] Comment on above: Performed By: #### B UN, LIPID #### [address] [address] #### HCV1 #### [address] [address] Monocyte, Absolute 0.6 10 3/mcL Normal 0.2-1.0 [facility] ([place]) Comment on above: Performed By: #### B UN, LIPID #### [place] [address] #### HCV1 #### [address] [address] Monocytes/100 WBC (Bld) 10.5 % Normal 1.7-13.0 [facility] ([place] Comment on above: Performed By: #### B UN, LIPID #### [place] [address] #### HCV1 #### [address] [address] Neutrophils/100 WBC (Bld) 47.9 % Normal 37.0-80.0 [facility] ([place]) Comment on above: Performed By: #### B UN, LIPID #### [place] [address] #### HCV1 #### [address] [address] .MDWon 06-06-2022 Monocyte Distribution Width Not performed Normal 0.00-20.00 [facility] ([place]) Comment on above: Result Comment: MDW testing performed only on adult ER patients between the ages of 18-89 years. Performed By: #### B UN, LIPID #### [place] [address] #### HCV1 #### [address] [address] .NEUABSon 06-06-2022 Neutrophil, Absolute 3.0 10 3/mcL Normal 2.9-6.2 [facility] ([place]) Comment on above: Performed By: #### B UN, LIPID #### [place] [address] #### HCV1 #### [address] [address] BUNon 06-06-2022 Urea nitrogen [Mass/Vol] 18 mg/dL Normal 7-18 [facility] ([place]) Comment on above: Performed By: #### B UN, LIPID #### [place] [address] #### HCV1 #### [place] [address] CBCon 06-06-2022 Erythrocyte distribution width (RBC) [Ratio] 13.3 % Normal 11.5-14.5 [facility] ([place]) Comment on above: Performed By: #### B UN, LIPID #### [place] [address] #### HCV1 #### [place] [address] Hematocrit (Bld) [Volume fraction] 37.1 % Normal 37.0-47.0 [facility] ([place] Comment on above: Performed By: #### B UN, LIPID #### [place] [address] #### HCV1 #### [place] [address] Hgb 12.6 G/dL Normal 12.0-16.0 [facility] [place] Comment on above: Performed By: #### B UN, LIPID #### [place] [address] #### HCV1 #### [place] [address] MCH (RBC) [Entitic mass] 32.8 pg High 27.0-31.2 [facility] ([place] Comment on above: Performed By: #### B UN, LIPID #### [place] [address] #### HCV1 #### [place] [address] MCHC 33.9 G/dL Normal 33.0-37.0 [facility] ([place] Comment on above: Performed By: #### B UN, LIPID #### [place] [address] #### HCV1 #### [place] [address] MCV (RBC) [Entitic vol] 96.8 fL High 80.0-94.0 [facility] ([place] Comment on above: Performed By: #### B UN, LIPID #### [place] [address] #### HCV1 #### [place] [address] Platelet 203 10 3/mcL Normal 130-400 [facility] ([place] Comment on above: Performed By: #### B UN, LIPID #### [place] [address] #### HCV1 #### [place] [address] Platelet mean volume (Bld) [Entitic vol] 9.8 fL Normal 7.4-10.4 [facility] ([place] Comment on above: Performed By: #### B UN, LIPID #### [place] [address] #### HCV1 #### [place] [address] RBC 3.83 10 6/mcL Low 4.20-5.40 [facility] ([place] Comment on above: Performed By: #### B UN, LIPID #### [place] [address] #### HCV1 #### [place] [address] WBC 6.2 10 3/mcL Normal 4.6-10.8 [facility] ([place] Comment on above: Performed By: #### B UN, LIPID #### [place] [address] #### HCV1 #### [place] [address] LABORATORYOrdered By: Kathi Sheth on 06-06-2022 Basophil, Absolute 0.0 103/mcL Invalid Interpretation Code 0.0 - 0.2 10^3/mcL AO Workflow SS Basophils/100 WBC (Bld) 0.5 % Invalid Interpretation Code 0.0 - 2.5 % AO Workflow SS Eosinophil, Absolute 0.1 103/mcL Invalid Interpretation Code 0.0 - 0.4 10^3/mcL AO Workflow SS Eosinophils/100 WBC (Bld) 1.4 % Invalid Interpretation Code 0.0 - 7.0 % AO Workflow SS Erythrocyte distribution width (RBC) [Ratio] 13.3 % Invalid Interpretation Code 11.5 - 14.5 % AO Workflow SS Hematocrit (Bld) [Volume fraction] 37.1 % Invalid Interpretation Code 37.0 - 47.0 % AO Workflow SS Hemoglobin (Bld) [Mass/Vol] 12.6 G/dL Invalid Interpretation Code 12.0 - 16.0 G/dL AO Workflow SS Lymphocyte, Absolute 2.4 103/mcL Invalid Interpretation Code 0.8 - 3.9 10^3/mcL AO Workflow SS Lymphocytes/100 WBC (Bld) 39.7 % Invalid Interpretation Code 10.0 - 50.0 % AO Workflow SS MCH (RBC) [Entitic mass] 32.8 pg Invalid Interpretation Code 27.0 - 31.2 pg AO Workflow SS MCHC 33.9 G/dL Invalid Interpretation Code 33.0 - 37.0 G/dL AO Workflow SS MCV (RBC) [Entitic vol] 96.8 fL Invalid Interpretation Code 80.0 - 94.0 fL AO Workflow SS Monocyte, Absolute 0.6 103/mcL Invalid Interpretation Code 0.2 - 1.0 10^3/mcL AO Workflow SS Monocytes/100 WBC (Bld) 10.5 % Invalid Interpretation Code 1.7 - 13.0 % AO Workflow SS Neutrophil, Absolute 3.0 103/mcL Invalid Interpretation Code 2.9 - 6.2 10^3/mcL AO Workflow SS Neutrophils/100 WBC (Bld) 47.9 % Invalid Interpretation Code 37.0 - 80.0 % AO Workflow SS Platelet mean volume (Bld) [Entitic vol] 9.8 fL Invalid Interpretation Code 7.4 - 10.4 fL AO Workflow SS Platelets (Bld) [#/Vol] 203 103/mcL Invalid Interpretation Code 130 - 400 10^3/mcL AO Workflow SS RBC (Bld) [#/Vol] 3.83 106/mcL Invalid Interpretation Code 4.20 - 5.40 10^6/mcL AO Workflow SS WBC 6.2 103/mcL Invalid Interpretation Code 4.6 - 10.8 10^3/mcL AO Workflow SS LABORATORYOrdered By: Adrianna Bruce on 06-06-2022 Cholesterol [Mass/Vol] 245 mg/dL Invalid Interpretation Code 0 - 200 mg/dL AO ADM SS Cholesterol in HDL [Mass/Vol] 81 mg/dL Invalid Interpretation Code 40 - 60 mg/dL AO ADM SS Cholesterol in LDL [Mass/Vol] 134 mg/dL Invalid Interpretation Code 0 - 130 mg/dL AO ADM SS Triglyceride [Mass/Vol] 151 mg/dL Invalid Interpretation Code 0 - 150 mg/dL AO ADM SS Urea nitrogen [Mass/Vol] 18 mg/dL Invalid Interpretation Code 7 - 18 mg/dL AO ADM SS LABORATORYOrdered By: Kimmy membreno on 06-06-2022 Hep C Ab Non-Reactive (06/06/22 1:13 PM) Invalid Interpretation Code Non-Reactive AH ADM SS Hep C Ab Int Nonreactive: Samples with a value < 0.80 are considered nonreactive (negative) for antibodies to HCV.A negative test result does not exclude the possibility of exposure to or infection with HCV. HCV antibodies may be undetectable in some stages of the infection and in some clinical conditions. Invalid Interpretation Code AH Chemistry S LABORATORYOrdered By: SYSTEM SYSTEM on 06-06-2022 Monocyte distribution width Auto (Bld) [Entitic vol] Not Performed 1 *NA* (06/06/22 1:13 PM) Invalid Interpretation Code 0.00 - 20.00 AO Hematology S Comment on above: Result Comment: MDW testing performed only on adult ER patients between the ages of 18-89 years. LIPIDon 06-06-2022 Cholesterol [Mass/Vol] 245 mg/dL High 0-200 [facility] ([place] Comment on above: Result Comment: Chol esterol Reference Interval: Less than 200 Desirable 200-239 Borderline high risk 240 and above High risk Performed By: #### C MP, GFR #### [address] [place], [place] [address] #### FOL, B12 #### [address] [address] Cholesterol in HDL [Mass/Vol] 81 mg/dL High 40-60 [facility] ([place] Comment on above: Performed By: #### C MP, GFR #### [address] [address] #### FOL, B12 #### [facility] [address] [place] [address] Cholesterol in LDL [Mass/Vol] 134 mg/dL High 0-130 [facility] ([place] Comment on above: Performed By: #### C MP, GFR #### [address] [address] #### FOL, B12 #### [facility] [address] [place] [address] Triglyceride [Mass/Vol] 151 mg/dL High 0-150 [facility] ([place] Comment on above: Result Comment: Trig lyceride Reference Interval: Less than 150 Normal 150-199 Borderline high risk 200-499 High risk 500 or higher Very high risk Performed By: #### C MP, GFR #### [address] [address] #### FOL, B12 #### [address] [address] XR KNEE THREE VIEWS RIGHTon 09-12-2021 XR KNEE THREE VIEWS RIGHT ORIGINAL EXAMINATION: THREE XRAY VIEWS OF THE RIGHT KNEE 09/12/2021 3:32 pm COMPARISON: None. HISTORY: ORDERING SYSTEM PROVIDED HISTORY: Reason for Exam: right knee pain FINDINGS: Minor patellofemoral osteoarthritis is noted. No fracture, dislocation or joint fluid seen. Interpreted by: Saulo Cevallos MD Preliminary Report By: Saulo Cevallos MD Electronically signed By Saulo Cevallos MD Dictated Date: 09/12/2021 8:32:08 PM Prelim Date: 09/12/2021 8:32:28 PM Sign Date: 09/12/2021 8:32:28 PM Ordering Provider: KENDRA Plata [facility] ([place]) [place] 11-27-2017 CNOV Office Visit ([facility]) JAVIER WHEELER ([id number]) 1965 FDate Time Provider [id number]/29/17 8:15 AM GIOVANNA DAVIS (SHREYA) [facility] During your visit today, we recorded the following information about you: Temperature Pulse Respiration Blood pressure 97.8 degrees 72/minute 18/minute 138/80 Weight 112.7 kgGiovanna Davis CNP 11/27/2017 8:54 AM SignedHPI Alvarez Wheeler is a 52 year old female who presents with a cough, sinuscongestion, sore throat for the past 6 weeks. She states symptoms arerelapsing/remitting in nature, she feels better for a few days and then is sickagain for a week. She has taken claritin and nyquil and latricia seltzer at homewithout relief. She has not had a fever.Review of SystemsConstitutional: Negative for chills and fever.HENT: Positive for congestion, sinus pain and sore throat. Negative for earpain.Respiratory: Positive for cough and sputum production. Negative for shortnessof breath.Cardiovascular: Negative. Negative for chest pain.Gastrointestinal: Negative. Negative for abdominal pain, diarrhea, nausea andvomiting.Musculoskelet al: Negative. Negative for myalgias.Skin: Negative. Negative for rash.Neurological: Negative. 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- REMOVAL GALLBLADDERALLERGIES Review of patient's allergies indicates no known allergies.MEDICATIONSbenz onatate (TESSALON PERLES) 100 mg capsule Take 1 capsule by mouth threetimes daily as needed for Cough.guaiFENesin (MUCINEX) 600 mg 12 hr tablet Take 1 tablet by mouth twice daily.azithromycin (ZITHROMAX Z-UMAIR) 250 mg tablet Take 2 tablets by mouth day one,then 1 tablet daily until gone.FAMILY HISTORYProblem Relation Age of Onset- Diabetes Father- Heart MotherSocial HistorySubstance Use Topics- Smoking status: Never Smoker- Smokeless tobacco: Never Used- Alcohol use 6.0 oz/weekPhysical ExamConstitutional: She is well-developed, well-nourished, and in no distress.HENT:Head: Normocephalic.Right Ear: Tympanic membrane, external ear and ear canal normal.Left Ear: Tympanic membrane, external ear and ear canal normal.Nose: Rhinorrhea and sinus tenderness present.Mouth/Throat: Uvula is midline, oropharynx is clear and moist and mucousmembranes are normal. No posterior oropharyngeal edema or posteriororopharyngeal erythema.Eyes: Conjunctivae are normal. Right eye exhibits no discharge. Left eyeexhibits no discharge.Neck: Neck supple.Cardiovascular: Normal rate, regular rhythm and normal heart sounds.No murmur heard.Lymphadenopathy: She has no cervical adenopathy.Neurological: She is alert.Skin: Skin is warm and dry. No rash noted.Nursing note and vitals reviewed.ASSESSMENT/PLAN: 1. Acute rhinosinusitis - ICD9: 461.9, ICD10: J01.90- Will begin treatment with Augmentin 875 mg PO BID for 10 days- The patient should also be given Mucinex for the first 5-7 days of treatment.- Supportive care with plenty of fluids, rest, and analgesia prn.- AMOXICILLIN 875 MG-POTASSIUM CLAVULANATE 125 MG TABLET- BENZONATATE 100 MG CAPSULE- GUAIFENESIN ER 600 MG TABLET, EXTENDED RELEASE 12 HR- Follow-up with your PCP in 3-5 days if symptoms have not improved or soonerif symptoms worsen- Discussed red flags and need for immediate medical evaluation if any occur.- Discussed supportive care treatment with fluids, rest and analgesia.- Discussed expected course of illnessTaiwo Godwin CNP 11/27/2017 8:29 AM SignedAcute SinusitisEach of us has four paired cavities (spaces) in our head that are connected tothe nose by narrow channels. These cavities, known as sinuses, produce thinmucus that drains out of the channels of the nose. This drainage helps keep thenose clean and free of particles and bacteria.Normally, sinuses are filled with air. But when sinuses become blocked andfilled with fluid, bacteria can grow and cause an infection (bacterialsinusitis).Cond itions that cause sinus blockage include:? the common cold? allergic rhinitis (swelling of the lining of the nose due to allergies)? nasal polyps (small growths in the lining of the nose), or? a deviated septum (the wall between the left and right nostril is crooked).Allergies, such as hay fever, can also cause swelling and poor drainage of thesinuses.One confusing factor to consider is that many people with ?sinus headaches? areactually suffering from migraines. In fact, in large clinical studies, up to90% of people who reported sinus headaches were diagnosed with migrainesinstead. Migraines can cause headaches in combination with facial pressure overthe sinuses, a runny nose, and nasal congestion. If you have symptoms thatinvolve the sinuses, it may be difficult to tell if you have sinusitis, a cold,nasal allergy, or even a migraine. This article will describe the symptoms,diagnosis, and treatment of sinusitis, and how to tell the difference betweensinusitis, cold, migraines, and nasal allergy.What is sinusitis?Sinusitis is an inflammation, or swelling, of the tissue lining the sinuses.There are two types of sinusitis:? Acute bacterial sinusitis: a sudden onset of cold symptoms such as runnynose, stuffy nose, and facial pain that does not go away after 10 days, orsymptoms that seem to begin improving but return worse than the initialsymptoms. It responds well to antibiotics and decongestants.? Chronic sinusitis: a condition defined by nasal congestion, drainage, facialpain/pressure, and decreased sense of smell for at least 12 weeks.Who gets sinusitis?Every year, approximately 1 billion Americans have at least one episode ofviral sinusitis. About 37 million will develop a bacterial sinusitis. Peoplewho have the following conditions have a higher risk of sinusitis:? Nasal mucus membrane swelling, as from a common cold or allergies? Blockage of drainage ducts, leading to trapping of mucus? Structure differences that narrow the drainage ducts? Conditions that result in an increased risk of infection? Polyps (growths)In children, common factors in the environment that contribute to sinusitisinclude allergies, illness from other children at day care or school, and smokein the environment.In adults, the contributing factors are most frequently viral infections,allergies, and smoking.What are the signs and symptoms of acute sinusitis?The primary symptoms of acute sinusitis include:? Facial pain/pressure/tenderness? Nasal stuffiness? Nasal discharge (thick yellow or green discharge from nose), especially if itis long-lasting. These also may be present with viral illness.? Loss of smell and taste? Cough/congestionAdditiona l symptoms may include:? Fever of 102? or higher? Ear pain? Headache? Bad breath? Fatigue? Ache in upper jaw and teethHow is sinusitis diagnosed?To diagnose sinusitis, your doctor will discuss your symptoms and examine yournose for swelling and drainage. Your personal history is most important indiagnosing sinusitis.A physical exam of the ears, nose, and throat is performed to look for signs ofobstruction (blockage) or infection.Some patients may have conditions that may need to be referred to a specialist,such as an ear, nose, and throat (ENT) physician.How is sinusitis treated?Acute sinusitis. If you have a simple sinusitis infection, your health careprovider may recommend treatment with bdci-net-twimwac medications for cold andallergy, nasal saline irrigation, and drinking fluids (as most sinusitis isviral). Use of prescription intranasal steroid sprays might be added to helpcontrol symptoms. However, non-prescription drops or sprays should not be usedbeyond 5 days -- or they may actually increase congestion.If symptoms do not improve after at least 10 days, if the symptoms seem to begetting worse, or if medications for cold or allergy do not improve symptoms, abacterial infection may be causing the sinusitis. In this case, antibiotics aregiven for 7 days in adults and 10 days in children. Antibiotics should improvesymptoms within 48 hours.Chronic sinusitis. Treating chronic sinusitis begins with controlling theunderlying condition, which is most often allergies. Standard treatmentsinclude intranasal steroid sprays, topical antihistamine sprays, orantihistamine pills, and leukotriene antagonists such as montelukast. Often youwill be encouraged to rinse the nose with saline irrigations. Sometimesmedications may be added to these irrigations.If sinusitis is not controlled, the next step is a visit with an Ear, Nose andThroat Specialist.Will I need to make lifestyle changes?If you have indoor allergies, avoiding triggers -- such as animal dander anddust mites ? is recommended in addition to medications.Smoking is never recommended, but if you do smoke, strongly consider a programto help you stop smoking, as this may be the main reason you have sinusinfections. No special diet is required, but drinking extra fluids helps tothin nasal secretions.What are the symptoms of the common cold?An upper respiratory infection (the common cold) is usually caused by a virusthat infects the nose and throat. Most upper respiratory infections are notbacterial and do not respond to antibiotics. A cold may cause swelling in thesinuses, preventing the outflow of mucus.Cold symptoms include nasal congestion, runny nose, post-nasal drip(ngcm-pd-sxov release of nasal fluid into the back of the throat), headache,achiness, and fatigue. Cough and fever may also go along with these symptoms.Cold symptoms usually build, peak, and slowly disappear. No treatment isnecessary for a cold, but some medications can ease symptoms. For example,decongestants may decrease drainage and open the nasal passages. Analgesics(pain relievers) may help with fever and headache. Cough medication may help,as well. Colds will typically last from a few days to about a week.What is the harm in getting an antibiotic for a common cold?Viral infections like the common cold are not cured by antibiotics. Taking anantibiotic for a viral infection unnecessarily puts you at risk for sideeffects related to the antibiotic. In addition, the overuse of antibioticsleads to antibiotic resistance,which may make future infections more difficult to treat. Finally, the use ofinappropriate medication increases health care costs unnecessarily.What are the symptoms of nasal allergy?Symptoms of nasal allergy include:? Sneezing? Itchy nose? Clear, watery nasal discharge? Nasal blockage? Feeling fatiguedHow is nasal allergy treated?Usually medications are prescribed to relieve symptoms. These may includeantihistamines, with or without decongestants, or steroid nasal sprays. Othernasal sprays, which deliver antihistamines or cromolyn sodium, are sometimeshelpful. If allergy symptoms are chronic (long-term), allergy testing andallergy shots (immunotherapy) may be helpful.How can I tell if I have a sinus infection, cold, or nasal allergy?Although the symptoms of sinusitis and nasal allergy may occur with a commoncold, in general, cold-related symptoms disappear within 1 week.The point at which a normal cold ends and a sinus condition begins is notalways easy to know. If you are fighting off a cold and develop symptoms of asinus infection or nasal allergy, see your health care provider. You will beasked to describe your symptoms and medical history.?How do I know if my sinus condition requires the care of an ear, nose, andthroat specialist?Most routine sinus conditions are easily cared for by primary care physicians.If, however, you are bothered by ongoing abnormal symptoms, recurringinfections, or have abnormal X-ray findings or complications, a referral to aspecialist is appropriate.References? Vicki Brewer. et al., IDSA Clinical Practice Guideline for Acute BacterialRhinosinusitis in Children and Adults. Clinical Infectious Diseases;2012;54(8):1041- 1045.? Miranda Sam, Sinusitis: Allergies, antibiotics, aspirin, asthma. [facility] Journal of Medicine 2006; 73(7): 671-678? [employer] [place] of Allergy and Infectious Diseases. Sinusitis (SinusInfection) Accessed 10/09/2015.? [place] [employer] of Allergy, Asthma, and Immunology. Sinusitis Gxsfijmn67/10/2015.? [place] [employer] of Allergy, Asthma ANDamp; Immunology. Sinus InformationAccessed 10/09/2015.? Tapan Quintero., Prevalence of migraine in patients with a history ofself-reported or physician-diagnosed ANDquot;sinusANDquot; headache. Arch InternMed, 2004. 164(16):1769-72.? Copyright 9653-3402 [facility]. All rights reserved.Referring Provider: SELF [200]Allergies As of Date: 11/27/2017(No Known Allergies)Date Reviewed: 11/27/2017Reviewed by: [facility]) Susan - Fully AssessedReason for Visit: sinus congestion and pressure and sore throat [Other] Cmt: x 6 weeks-starts to get better then it comes backPrimary Visit Diagnosis:Acute rhinosinusitis [J01.90]Order(s):amoxicil carissa-clavulanic acid (AUGMENTIN) 875-125 mg per tabletTake 1 tablet by mouth twice daily for 10 days.Disp: 20 tabletRfl: 0 benzonatate (TESSALON PERLE) 100 mg capsuleTake 1 capsule by mouth three times daily as needed for up to 10 days.Disp: 30 capsuleRfl: 0 guaiFENesin (MUCINEX) 600 mg 12 hr tabletTake 1 tablet by mouth twice daily for 10 days.Disp: 20 tabletRfl: 0Prescriptions as of 11/27/2017 Sig: AMOXICILLIN 875 MG-POTASSIUM * Take 1 tablet by mouth twice * BENZONATATE 100 MG CAPSULE Take 1 capsule by mouth three* GUAIFENESIN ER 600 MG TABLET,* Take 1 tablet by mouth twice *Medication notes this encounter BENZONATATE 100 MG CAPSULE >> [facility] 11/27/2017 8:13 AM >> BESANCONOLEGRA TABLE TENDER SLUDGE ThuNov 27, 2017 8:13 AM Finished GUAIFENESIN ER 600 MG TABLET, EXTENDED RELEASE 12 HR >> Felipa Besancon [facility] 11/27/2017 8:13 AM >> BESANCONOLEGRA TABLE TENDER SLUDGE ThuNov 27, 2017 8:13 AM Finished AZITHROMYCIN 250 MG TABLET >> Felipa Besancon [facility] 11/27/2017 8:13 AM >> BESDEIONONOLEGRA TABLE TENDER SLUDGE ThuNov 27, 2017 8:13 AM FinishedProblem List As Of Date 11/27/2017 Noted Resolved DIS OF BILIARY TRACT NOS [K83.9] INVALID FOR* ABDOMINAL PAIN UNSPEC SITE [R10.9] INVALID FOR* Other instructions from your clinician: Acute Sinusitis Each of us has four paired cavities (spaces) in our head that are connected to the nose by narrow channels. These cavities, known as sinuses, produce thin mucus that drains out of the channels of the nose. This drainage helps keep the nose clean and free of particles and bacteria. Normally, sinuses are filled with air. But when sinuses become blocked and filled with fluid, bacteria can grow and cause an infection (bacterial sinusitis). Conditions that cause sinus blockage include: ? the common cold ? allergic rhinitis (swelling of the lining of the nose due to allergies) ? nasal polyps (small growths in the lining of the nose), or ? a deviated septum (the wall between the left and right nostril is crooked). Allergies, such as hay fever, can also cause swelling and poor drainage of the sinuses. One confusing factor to consider is that many people with ?sinus headaches? are actually suffering from migraines. In fact, in large clinical studies, up to 90% of people who reported sinus headaches were diagnosed with migraines instead. Migraines can cause headaches in combination with facial pressure over the sinuses, a runny nose, and nasal congestion. If you have symptoms that involve the sinuses, it may be difficult to tell if you have sinusitis, a cold, nasal allergy, or even a migraine. This article will describe the symptoms, diagnosis, and treatment of sinusitis, and how to tell the difference between sinusitis, cold, migraines, and nasal allergy. What is sinusitis? Sinusitis is an inflammation, or swelling, of the tissue lining the sinuses. There are two types of sinusitis: ? Acute bacterial sinusitis: a sudden onset of cold symptoms such as runny nose, stuffy nose, and facial pain that does not go away after 10 days, or symptoms that seem to begin improving but return worse than the initial symptoms. It responds well to antibiotics and decongestants. ? Chronic sinusitis: a condition defined by nasal congestion, drainage, facial pain/pressure, and decreased sense of smell for at least 12 weeks. Who gets sinusitis? Every year, approximately 1 billion Americans have at least one episode of viral sinusitis. About 37 million will develop a bacterial sinusitis. People who have the following conditions have a higher risk of sinusitis: ? Nasal mucus membrane swelling, as from a common cold or allergies ? Blockage of drainage ducts, leading to trapping of mucus ? Structure differences that narrow the drainage ducts ? Conditions that result in an increased risk of infection ? Polyps (growths) In children, common factors in the environment that contribute to sinusitis include allergies, illness from other children at day care or school, and smoke in the environment. In adults, the contributing factors are most frequently viral infections, allergies, and smoking. What are the signs and symptoms of acute sinusitis? The primary symptoms of acute sinusitis include: ? Facial pain/pressure/tenderness ? Nasal stuffiness ? Nasal discharge (thick yellow or green discharge from nose), especially if it is long-lasting. These also may be present with viral illness. ? Loss of smell and taste ? Cough/congestion Additional symptoms may include: ? Fever of 102? or higher ? Ear pain ? Headache ? Bad breath ? Fatigue ? Ache in upper jaw and teeth How is sinusitis diagnosed? To diagnose sinusitis, your doctor will discuss your symptoms and examine your nose for swelling and drainage. Your personal history is most important in diagnosing sinusitis. A physical exam of the ears, nose, and throat is performed to look for signs of obstruction (blockage) or infection. Some patients may have conditions that may need to be referred to a specialist, such as an ear, nose, and throat (ENT) physician. How is sinusitis treated? Acute sinusitis. If you have a simple sinusitis infection, your health care provider may recommend treatment with dgpp-mpy-ymxzngf medications for cold and allergy, nasal saline irrigation, and drinking fluids (as most sinusitis is viral). Use of prescription intranasal steroid sprays might be added to help control symptoms. However, non-prescription drops or sprays should not be used beyond 5 days -- or they may actually increase congestion. If symptoms do not improve after at least 10 days, if the symptoms seem to be getting worse, or if medications for cold or allergy do not improve symptoms, a bacterial infection may be causing the sinusitis. In this case, antibiotics are given for 7 days in adults and 10 days in children. Antibiotics should improve symptoms within 48 hours. Chronic sinusitis. Treating chronic sinusitis begins with controlling the underlying condition, which is most often allergies. Standard treatments include intranasal steroid sprays, topical antihistamine sprays, or antihistamine pills, and leukotriene antagonists such as montelukast. Often you will be encouraged to rinse the nose with saline irrigations. Sometimes medications may be added to these irrigations. If sinusitis is not controlled, the next step is a visit with an Ear, Nose and Throat Specialist. Will I need to make lifestyle changes? If you have indoor allergies, avoiding triggers -- such as animal dander and dust mites ? is recommended in addition to medications. Smoking is never recommended, but if you do smoke, strongly consider a program to help you stop smoking, as this may be the main reason you have sinus infections. No special diet is required, but drinking extra fluids helps to thin nasal secretions. What are the symptoms of the common cold? An upper respiratory infection (the common cold) is usually caused by a virus that infects the nose and throat. Most upper respiratory infections are not bacterial and do not respond to antibiotics. A cold may cause swelling in the sinuses, preventing the outflow of mucus. Cold symptoms include nasal congestion, runny nose, post-nasal drip (gtfk-gf-ynfh release of nasal fluid into the back of the throat), headache, achiness, and fatigue. Cough and fever may also go along with these symptoms. Cold symptoms usually build, peak, and slowly disappear. No treatment is necessary for a cold, but some medications can ease symptoms. For example, decongestants may decrease drainage and open the nasal passages. Analgesics (pain relievers) may help with fever and headache. Cough medication may help, as well. Colds will typically last from a few days to about a week. What is the harm in getting an antibiotic for a common cold? Viral infections like the common cold are not cured by antibiotics. Taking an antibiotic for a viral infection unnecessarily puts you at risk for side effects related to the antibiotic. In addition, the overuse of antibiotics leads to antibiotic resistance, which may make future infections more difficult to treat. Finally, the use of inappropriate medication increases health care costs unnecessarily. What are the symptoms of nasal allergy? Symptoms of nasal allergy include: ? Sneezing ? Itchy nose ? Clear, watery nasal discharge ? Nasal blockage ? Feeling fatigued How is nasal allergy treated? Usually medications are prescribed to relieve symptoms. These may include antihistamines, with or without decongestants, or steroid nasal sprays. Other nasal sprays, which deliver antihistamines or cromolyn sodium, are sometimes helpful. If allergy symptoms are chronic (long-term), allergy testing and allergy shots (immunotherapy) may be helpful. How can I tell if I have a sinus infection, cold, or nasal allergy? Although the symptoms of sinusitis and nasal allergy may occur with a common cold, in general, cold-related symptoms disappear within 1 week. The point at which a normal cold ends and a sinus condition begins is not always easy to know. If you are fighting off a cold and develop symptoms of a sinus infection or nasal allergy, see your health care provider. You will be asked to describe your symptoms and medical history. ? How do I know if my sinus condition requires the care of an ear, nose, and throat specialist? Most routine sinus conditions are easily cared for by primary care physicians. If, however, you are bothered by ongoing abnormal symptoms, recurring infections, or have abnormal X-ray findings or complications, a referral to a specialist is appropriate. References ? Tangela Brewer et al., IDSA Clinical Practice Guideline for Acute Bacterial Rhinosinusitis in Children and Adults. Clinical Infectious Diseases; 2012;54(8):9630-2240. ? Miranda Sam, Sinusitis: Allergies, antibiotics, aspirin, asthma. [facility] Journal of Medicine 2006; 73(7): 671-678 ? [employer] [place] of Allergy and Infectious Diseases. Sinusitis (Sinus Infection) Accessed 10/09/2015. ? [place] [employer] of Allergy, Asthma, and Immunology. Sinusitis Accessed 10/09/2015. ? [place] [employer] of Allergy, Asthma AND Immunology. Sinus Information Accessed 10/09/2015. ? Tapan Quintero., Prevalence of migraine in patients with a history of self-reported or physician-diagnosed "sinus" headache. [employer] Med, 2004. 164(16):1769-48. ? Copyright 1702-0926 [facility]. All rights reserved.Prescriptions ordered this encounter Disp Refills Start End AMOXICILLIN 875 MG-POTASSIUM CLAVULA* 20 t* 0 11/27/2017 12/07/2017 Route: ORAL Sig: Take 1 tablet by mouth twice daily for 10 days. BENZONATATE 100 MG CAPSULE 30 c* 0 11/27/2017 12/07/2017 Route: ORAL Sig: Take 1 capsule by mouth three times daily as needed for up to 10 days. GUAIFENESIN ER 600 MG TABLET, EXTEND* 20 t* 0 11/27/2017 12/07/2017 Route: ORAL Sig: Take 1 tablet by mouth twice daily for 10 days.Medications Discontinued During This Encounter benzonatate (TESSALON PERLES) 100 mg* 30 c* 0 02/12/2016 11/27/2017 Route: ORAL Sig: Take 1 capsule by mouth three times daily as needed for Cough. Disc: Reason for discontinue is not on file. azithromycin (ZITHROMAX Z-UMAIR) 250 m* 1 Pa* 0 02/12/2016 11/27/2017 Sig: Take 2 tablets by mouth day one, then 1 tablet daily until gone. Disc: Reason for discontinue is not on file. guaiFENesin (MUCINEX) 600 mg 12 hr t* 30 t* 0 02/12/2016 11/27/2017 Route: ORAL Sig: Take 1 tablet by mouth twice daily. Disc: Reason for discontinue is not on file. Status:Closed by GIOVANNA DAVIS on 11/27/17 Normal [facility] PROGRESSon 11-27-2017 PROGRESS HNO ID: [id number] thor: Giovanna ([facility]) Kim: (none)Author Type: Nurse PractitionerType: Progress NotesFiled: 11/27/2017 8:54 AMNote Text:HPI Alvarez Wheeler is a 52 year old female who presents with a cough,sinus congestion, sore throat for the past 6 weeks. She states symptomsare relapsing/remitting in nature, she feels better for a few days andthen is sick again for a week. She has taken claritin and nyquil and alkaseltzer at home without relief. She has not had a fever.Review of SystemsConstitutional: Negative for chills and fever.HENT: Positive for congestion, sinus pain and sore throat. Negative forear pain.Respiratory: Positive for cough and sputum production. Negative forshortness of breath.Cardiovascular: Negative. Negative for chest pain.Gastrointestinal: Negative. Negative for abdominal pain, diarrhea, nauseaand vomiting.Musculoskeletal: Negative. Negative for myalgias.Skin: Negative. Negative for rash.Neurological: Negative. 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 Petra-en-Y choledochojejunostomy- REMOVAL GALLBLADDERALLERGIES Review of patient's allergies indicates no known allergies.MEDICATIONSbenz onatate (TESSALON PERLES) 100 mg capsule Take 1 capsule by mouth threetimes daily as needed for Cough.guaiFENesin (MUCINEX) 600 mg 12 hr tablet Take 1 tablet by mouth twicedaily.azithromycin (ZITHROMAX Z-UMAIR) 250 mg tablet Take 2 tablets by mouth dayone, then 1 tablet daily until gone.FAMILY HISTORYProblem Relation Age of Onset- Diabetes Father- Heart MotherSocial HistorySubstance Use Topics- Smoking status: Never Smoker- Smokeless tobacco: Never Used- Alcohol use 6.0 oz/weekPhysical ExamConstitutional: She is well-developed, well-nourished, and in no distress.HENT:Head: Normocephalic.Right Ear: Tympanic membrane, external ear and ear canal normal.Left Ear: Tympanic membrane, external ear and ear canal normal.Nose: Rhinorrhea and sinus tenderness present.Mouth/Throat: Uvula is midline, oropharynx is clear and moist and mucousmembranes are normal. No posterior oropharyngeal edema or posteriororopharyngeal erythema.Eyes: Conjunctivae are normal. Right eye exhibits no discharge. Left eyeexhibits no discharge.Neck: Neck supple.Cardiovascular: Normal rate, regular rhythm and normal heart sounds.No murmur heard.Lymphadenopathy: She has no cervical adenopathy.Neurological: She is alert.Skin: Skin is warm and dry. No rash noted.Nursing note and vitals reviewed.ASSESSMENT/PLAN: 1. Acute rhinosinusitis - ICD9: 461.9, ICD10: J01.90- Will begin treatment with Augmentin 875 mg PO BID for 10 days- The patient should also be given Mucinex for the first 5-7 days oftreatment.- Supportive care with plenty of fluids, rest, and analgesia prn.- AMOXICILLIN 875 MG-POTASSIUM CLAVULANATE 125 MG TABLET- BENZONATATE 100 MG CAPSULE- GUAIFENESIN ER 600 MG TABLET, EXTENDED RELEASE 12 HR- Follow-up with your PCP in 3-5 days if symptoms have not improved orsooner if symptoms worsen- Discussed red flags and need for immediate medical evaluation if anyoccur.- Discussed supportive care treatment with fluids, rest and analgesia.- Discussed expected course of illnessGiovanna Davis CNP Normal [facility] Encounters Encounter Date Encounter Type Care Provider Facility Start: 09-14-2025 ambulatory Kendra Amado LOAN SERVICE OFFICER Facility :[facility] Start: 09-11-2025 End: 09-11-2025 ambulatory KENDRA AMADO APRN-LOOM TUNER Facility:[facility] Start: 09-11-2025 End: 09-11-2025 Patient encounter procedure KENDRA AMADO APRN-LOOM TUNER [facility] Start: 09-02-2024 End: 09-02-2024 Patient encounter procedure KENDRA AMADO APRN-LOOM TUNER [facility] Start: 02-22-2024 End: 02-22-2024 ambulatory [facility] Work Phone: Start: 02-22-2024 End: 02-22-2024 Patient encounter procedure [facility] Work Phone: Start: 08-10-2023 End: 08-10-2023 ambulatory [facility] Work Phone: Start: 08-10-2023 End: 08-10-2023 Patient encounter procedure [facility] Work Phone: Start: 02-11-2023 End: 02-11-2023 ambulatory [facility] Work Phone: Start: 02-11-2023 End: 02-11-2023 Patient encounter procedure [facility] Start: 08-05-2022 End: 08-05-2022 ambulatory [facility] Work Phone: Start: 08-05-2022 End: 08-05-2022 Patient encounter procedure [facility] Start: 06-11-2022 End: 06-11-2022 Patient encounter procedure KENDRA AMADO HIGH LIFT OPERATOR-LOOM TUNER [facility] Start: 06-06-2022 End: 06-06-2022 Patient encounter procedure KENDRA AMADO HIGH LIFT OPERATOR-LOOM TUNER [facility] Start: 11-21-2021 End: 03-04-[address] TANIKA HALL MD [facility] Start: 09-12-2021 End: 09-12-2021 Patient encounter procedure KENDRA AMADO HIGH LIFT OPERATOR-LOOM TUNER [facility] Start: 09-09-2021 End: 09-09-2021 Patient encounter procedure GET CASPER HIGH LIFT OPERATOR-LOOM TUNER [facility] Start: 11-27-2017 End: 12-02-2017 Ambulatory [facility] Procedures Date Procedure Procedure Detail Performing Clinician Start: 08-10-2023 Screening mammography Start: 02-11-2023 MRI of joint of lower extremity Start: 08-05-2022 Screening mammography Start: 08-25-2002 Colonoscopy GET CASPER HIGH LIFT OPERATOR-LOOM TUNER H/O: hysterectomy History of hysterectomy KENDRA INGRIS HIGH LIFT OPERATOR-LOOM TUNER Hysterectomy GET CASPER HIGH LIFT OPERATOR -LOOM TUNER Payers Date Payer Category Payer Private Health Insurance [id number] 2025 Self-pay [id number] 2025 [facility] [id number] 2013 Unknown [employer] [id number] 1965 Unknown [id number] Unknown [id number] Social History Date Type Detail Facility Start: 07-19-2019 End: 08-22-2025 Never smoked tobacco (finding) [facility] Start: 1965 Sex Assigned At Female A [facility] Sexual Orientation [facility] Start: 05-25-2019 Sex Female (finding) [facility] Evaluation + Plan note 06-11-2022 Radiology Note Date & Type Note Facility 06-11-2022 Evaluation + Plan note Diagnostic Tests PendingVitamin B12 Level 06/11/22Folate Level 06/11/22 Future Scheduled TestsMA Mammo Screening Bilateral w/ Munir 06/04/22XR Knee 3 Views Right 09/12/21 [facility] Evaluation + Plan note 06-04-2022 Radiology Note Date & Type Note Facility 06-04-2022 Evaluation + Plan note Future Scheduled TestsMA Mammo Screening Bilateral w/ Munir 06/04/22XR Knee 3 Views Right 09/12/21 [facility] Evaluation + Plan note 05-23-2021 Laboratory Note Date & Type Note Facility 05-23-2021 Evaluation + Plan note Future Scheduled TestsComplete Blood Count 05/23/21Lipid Profile 05/23/21Complete Metabolic Panel 05/23/21 [facility] Evaluation + Plan note 05-23-2021 LaboratoryRadiology Note Date & Type Note Facility 05-23-2021 Evaluation + Plan note Future Scheduled TestsComplete Blood Count 05/23/21Lipid Profile 05/23/21Complete Metabolic Panel 05/23/21XR Knee 3 Views Right 09/12/21 [facility] Evaluation + Plan note 05-23-2021 LaboratoryRadiology Note Date & Type Note Facility 05-23-2021 Evaluation + Plan note Future Scheduled TestsComplete Blood Count 05/23/21Lipid Profile 05/23/21Complete Metabolic Panel 05/23/21XR Knee 3 Views Right 09/12/21 [facility] Evaluation + Plan note Radiology Note Date & Type Note Facility Evaluation + Plan note Future Appointments Appointment Date:02/20/2026 07:00:00 AM Scheduled Provider:KENDRA AMADO Location:[facility] Appointment Type:PC OV Future Scheduled TestsMA Mammo Screening Bilateral w/ Munir 08/22/25 [facility] Evaluation note Note Date & Type Note Facility Evaluation note No assessment information availa [facility] Work Phone: Hospital course Narrative Note Date & Type Note Facility Hospital course Narrative No data available for this section [facility] Hospital Discharge instructions Note Date & Type Note Facility Hospital Discharge instructions No data available for this section [facility] Progress note Note Date & Type Note Facility Progress note No data available for this section [facility] Summary Purpose Family History No Family History Records FoundNo Family History Records Found No data available for this section No Family History Records Found No data available for this section No Family History Records Found Advance Directives No Advanced Directives Records FoundNo Advanced Directives Records FoundNo Advanced Directives Records FoundNo Advanced Directives Records Found Chief Complaint and Reason for Visit Chief Complaint SCREENING Chief Complaint Pain in left foot Chief Complaint SCREENING Additional Source Comments INFORMATION SOURCE (unrecogn ized section and content) DATE CREATED AUTHOR 05/25/2018 [facility] DATE CREATED AUTHOR AUTHOR'S ORGANIZ ATION 06/18/2022 [facility] ([place]) DATE CREATED AUTHOR AUTHOR'S ORGANIZ ATION 09/02/2025 [facility] DATE CREATED AUTHOR AUTHOR'S ORGANIZ ATION 09/13/2025 [facility] Care Team (unrecognized sect ion and content) Team Status: Active Member Role Status Dates Dr. Samy Guevara , DO Family Provider Active Kendra Amado LOAN SERVICE OFFICER, LOAN SERVICE OFFICER-C Primary Care Provider Active Team Status: Inactive Member Role Status Dates Kendra Amado LOAN SERVICE OFFICER, LOAN SERVICE OFFICER-C Primary Care Provider Active Dr. Saulo Lindsay , [place] Attending Provider, Referri ng Provider Active Team Status: Inactive Member Role Status Dates Kendra Amado LOAN SERVICE OFFICER, LOAN SERVICE OFFICER-C Primary Care Provid er, Attending Provider, Referring Provider Active Team Status: Inactive Member Role Status Dates Kendra Amado LOAN SERVICE OFFICER, LOAN SERVICE OFFICER-C Primary Care Provider Active Dr. Landy Martinez MD Attending Provider, Referring Provider Active Care Team (unrecognized sect ion and content) Care Team Personnel Name: KENDRA AMADO Position: P4 Advanced Practice Nurse Med Service: Active Provider Member Role: Primary Care Physician Address: Address: [address] [place] [address] Name: DUC DRIVER DPM Position: Physician Med Service: Admitting Member Role: Industrial Maintenance Electrician Address: Address: [address] [place] [address], [address] [facility] [address] Name: TANIKA HALL MD Position: P3 Physician - Orthopedics Med Service: Admitting Member Role: Orthopaedist Address: Address: [address] [place] [address] [facility] [place] [address]- Care Team Related Persons Name: IGLESIASOHA MCMULLEN Address: Home [address] [place] [phone] Care Team Personnel Name: KENDRA AMADO Position: P4 Advanced Practice Nurse Med Service: Active Provider Member Role: Primary Care Physician Address: Address: [address] [place] [address] Name: DUC DRIVER DPM Position: Physician Med Service: Admitting Member Role: Industrial Maintenance Electrician Address: Address: [address] [place] [address] [address] [facility] [place] [address]- Name: TANIKA HALL MD Position: P3 Physician - Orthopedics Med Service: Admitting Member Role: Orthopaedist Address: Address: [address] [place] [address] [address] [facility] [place] [address]- Care Team Related Persons Name: SOHA WHEELER Address: Home [id number] [place] [phone] Goals (unrecognized section and content) Goals may be documented in a n alternate section FOR RECORDS PERTAINING TO PATIENTS WHO ARE OR HAVE BEEN ENROLLED IN A CHEMICAL DEPENDENCY/SUBSTANCEABUSE PROGRAM, SOME INFORMATION MAY BE OMITTED. This clinical summary was aggregated from multiple sources. Caution should be exercised in using it in the provision of clinical care. This summary normalizes information from multiple sources, and as a consequence, information in this document may materially change the coding, format and clinical context of patient data. In addition, data may be omitted in some cases. CLINICAL DECISIONS SHOULD BE BASED ON THE PRIMARY CLINICAL RECORDS. [facility] [employer] provides no warranty or guarantee of the accuracy or completeness of information in this document.
== END | disposition home or self-care (01) ==
PROVIDERS: PCP Nurse Practitioner Primary Care; Referring Provider Nurse Practitioner Primary Care; Visit Provider Nurse Practitioner Primary Care
DX: Z12.31 Encounter for screening mammogram for malignant neoplasm of breast (principal)
CPT/HCPCS: 77063; 77067